=== PATIENT | female | born 1950 | race Caucasian/White ===

== ENCOUNTER 2020-07-18 14:20 | Inpatient (IN) | payer MEDICARE, OTHER ==
[~2020-07-18] VITALS: Ht 167.6 cm; Wt 69.9 kg
--- NOTE | 2020-07-18 14:34 | NUR ---
[facility]IB [facility] FROM [facility], WORSENING CHRONIC ABDOMINAL PAIN (2 1/2 YRS). PAIN LEVEL 5/10. ATTACHED TO THE MONITOR. WILL CONTINUE TO MONITOR THE PATIENT.
[2020-07-18 14:51] LABS: BASOPHILS % (AUTO) 0.4 % (0.0-2.0); EOSINOPHILS % (AUTO) 2.7 % (0.0-6.0); HEMATOCRIT 37 % (33-45); HEMOGLOBIN 12.5 g/dL (11.5-14.8); LYMPHOCYTES # (AUTO) 1.7 /CMM (0.8-4.8); LYMPHOCYTES % (AUTO) 22.9 % (20.0-44.0); MEAN CORPUSCULAR HGB CONC 34 g/dl (31.0-36.0); MEAN CORPUSCULAR VOLUME 88 fL (82-100); MONOCYTES # (AUTO) 0.7 /CMM (0.1-1.30); MONOCYTES % (AUTO) 9.5 % (2.0-12.0); NEUTROPHILS # (AUTO) 4.7 /CMM (1.8-8.9); NEUTROPHILS % (AUTO) 64.5 % (43.0-81.0); PLATELET COUNT (AUTO) 121 /CMM (150-450); RED BLOOD CELL COUNT(AUTO) 4.27 MIL/uL (4.0-5.2); WHITE BLOOD COUNT (AUTO) 7.2 K/uL (4.3-11.0)
[2020-07-18 14:55] LABS: CALCIUM, SERUM 8.9 mg/dL (8.5-10.1); CREATININE 1.3 mg/dL (0.6-1.3); POTASSIUM 4.8 mmol/L (3.5-5.1)
[2020-07-18] MEDS ORDERED: IOHEXOL-300 100 ML VIAL IV ONE (15:13)
[2020-07-18] MEDS ORDERED: IV NS 0.9% 250 ML IV ONE (15:13)
[2020-07-18 15:41] LABS: ALBUMIN 3.4 g/dL (3.4-5.0)
[2020-07-18 15:42] LABS: BILIRUBIN,DIRECT 0.1 mg/dL (0.0-0.2); BILIRUBIN,TOTAL 0.2 mg/dL (0.2-1.0)
[2020-07-18 15:43] LABS: TOTAL PROTEIN, SERUM 7.5 g/dL (6.4-8.2)
--- NOTE | 2020-07-18 16:08 | NUR ---
DR. METCALF CALLED [phone] GILDARDO HAGEN PROCEDURAL NURSE TO CALL US BACK.
[2020-07-18] MEDS ORDERED: BISA10SU11 RC (17:07)
[2020-07-18] MEDS ORDERED: SODI45SP6 NS (17:07)
[2020-07-18] MEDS ORDERED: BACL10TA PO (17:07)
[2020-07-18] MEDS ORDERED: SERT100T PO (17:07)
[2020-07-18] MEDS ORDERED: NAPR-1009 PO (17:07)
[2020-07-18] MEDS ORDERED: OMEG1CAP55 PO (17:07)
[2020-07-18] MEDS ORDERED: ASPI-1169 PO (17:07)
[2020-07-18] MEDS ORDERED: SENN-175 PO (17:07)
[2020-07-18] MEDS ORDERED: DORZ10DR13 EACHEYE (17:07)
[2020-07-18] MEDS ORDERED: CLOP75TA15 PO (17:07)
[2020-07-18] MEDS ORDERED: ASCO500C17 PO (17:07)
[2020-07-18] MEDS ORDERED: GABA-532 PO (17:07)
[2020-07-18] MEDS ORDERED: SIMV-49 PO (17:07)
[2020-07-18] MEDS ORDERED: MELA3TAB41 PO (17:07)
[2020-07-18] MEDS ORDERED: NA P133E RC (17:07)
[2020-07-18] MEDS ORDERED: MAGN400O6 PO (17:07)
[2020-07-18] MEDS ORDERED: CARB1TAB21 PO (17:07)
[2020-07-18] MEDS ORDERED: ACET325T53 PO (17:07)
[2020-07-18] MEDS ORDERED: FAMO20TA8 PO (17:07)
[2020-07-18] MEDS ORDERED: MULT-439 PO (17:07)
[2020-07-18] MEDS ORDERED: DOCU-141 PO (17:07)
[2020-07-18] MEDS ORDERED: POLY17PO4 PO (17:07)
[2020-07-18] MEDS ORDERED: NEPA3DRO OP (17:07)
[2020-07-18] MEDS ORDERED: CLON1TAB PO (17:07)
--- NOTE | 2020-07-18 17:34 | NUR ---
covid swab done and sent to the lab
--- NOTE | 2020-07-18 17:39 | NUR ---
BED 105
--- NOTE | 2020-07-18 17:45 | NUR ---
[facility] CALLED COTTAGE SUPERVISOR PAGED.
--- NOTE | 2020-07-18 18:02 | NUR ---
REPORT GIVEN TO NURSE JOE.
--- NOTE | 2020-07-18 19:39 | NUR ---
DR. CUELLO SPEAKING WITH VIANEY DELGADILLO NP REGARDING ADMISSION
--- NOTE | 2020-07-18 20:30 | NUR ---
RN NOTE PT ARRIVED TO THE UNIT VIA GURJESSICA PT IS A/A/O X3, ON RA SATING 95%,HAS UNLABORED BREATHING, SAFETY MEASURES IN PLACE.
[2020-07-18 21:00] VITALS: BP 120/67
[2020-07-18] MEDS ORDERED: MORPHINE SULFATE INJ 2 MG/ML DISP.SYRIN IV PRN (22:00)
[2020-07-18] MEDS ORDERED: ACETAMINOPHEN 325 MG TABLET PO PRN (22:00)
[2020-07-18] MEDS ORDERED: CIPROFLOXACIN IV RTU 400 MG in PREMIX 1 EA IV SCH (22:00)
[2020-07-18] MEDS ORDERED: MAG HYDROX/AL HYDROX/SIMETH 30 ML UDC PO PRN (22:00)
[2020-07-18] MEDS ORDERED: ONDANSETRON HCL/PF 4 MG/2 ML VIAL IVP PRN (22:00)
[2020-07-18] MEDS ORDERED: HYDROCODONE/APAP 5/325MG TABLET PO PRN (22:00)
[2020-07-18] MEDS ORDERED: MAGNESIUM HYDROXIDE 30 ML UDC PO PRN (22:00)
[2020-07-18] MEDS ORDERED: METRONIDAZOLE 500MG/ NS 100ML 100 ML IV ONE (22:19)
[2020-07-18] MEDS ORDERED: CEFTRIAXONE 1 G VIAL ONE (22:20)
[2020-07-18] MEDS: IV NS 0.9% 1,000 ML IV PRN (22:24)
[2020-07-18] MEDS: CEFTRIAXONE 1 G in IV D5W 50 ML IV SCH (22:25)
[2020-07-18] MEDS: METRONIDAZOLE 500MG/ NS 100ML 500 MG in PREMIX 1 EA IV SCH (22:57)
[2020-07-19 04:00] VITALS: BP 120/61
[2020-07-19] MEDS ORDERED: METRONIDAZOLE 500MG/ NS 100ML 100 ML IV ONE (06:01)
[2020-07-19 06:02] LABS: BASOPHILS % (AUTO) 0.3 % (0.0-2.0); EOSINOPHILS % (AUTO) 2.8 % (0.0-6.0); HEMATOCRIT 37 % (33-45); HEMOGLOBIN 12.5 g/dL (11.5-14.8); LYMPHOCYTES # (AUTO) 1.7 /CMM (0.8-4.8); LYMPHOCYTES % (AUTO) 33.4 % (20.0-44.0); MEAN CORPUSCULAR HGB CONC 34 g/dl (31.0-36.0); MEAN CORPUSCULAR VOLUME 88 fL (82-100); MONOCYTES # (AUTO) 0.5 /CMM (0.1-1.30); MONOCYTES % (AUTO) 9.7 % (2.0-12.0); NEUTROPHILS # (AUTO) 2.8 /CMM (1.8-8.9); NEUTROPHILS % (AUTO) 53.8 % (43.0-81.0); PLATELET COUNT (AUTO) 96 /CMM (150-450); RED BLOOD CELL COUNT(AUTO) 4.26 MIL/uL (4.0-5.2); WHITE BLOOD COUNT (AUTO) 5.2 K/uL (4.3-11.0)
[2020-07-19] MEDS: METRONIDAZOLE 500MG/ NS 100ML 500 MG in PREMIX 1 EA IV SCH ×3 (06:03→22:30)
[2020-07-19 06:06] LABS: CALCIUM, SERUM 8.6 mg/dL (8.5-10.1); CREATININE 1.2 mg/dL (0.6-1.3); MAGNESIUM 2.1 mg/dL (1.8-2.4); PHOSPHORUS 3.2 mg/dL (2.5-4.9); POTASSIUM 4.1 mmol/L (3.5-5.1)
--- NOTE | 2020-07-19 07:13 | NUR ---
RN NOTE REPORT GIVEN TO ONCOMING SHIFT FOR PAM.
--- NOTE | 2020-07-19 07:50 | NUR ---
MS RN OPENING NOTE PATIENT IS IN BED RESTING, PATIENT IS IN NO ACUTE DISTRESS. PATIENT WAS ON ROOM AIR, STATED SHE HAS DIFFICULTY BREATHING, PLACED PATIENT ON 2L OXYGEN VIA NASAL CANULA. PATIENT IS ON BED REST. SAFETY PRECAUTIONS ARE ON. BED IS LOCKED IN THE LOWEST POSITION WITH SIDE RAILS UP, CALL LIGHT WITHIN REACH, WILL CONTINUE TO MONITOR CLOSELY THROUGHOUT THE SHIFT.
[2020-07-19] MEDS ORDERED: Medication Not On Formulary EA (Nepafenac (Nevanac) 1 DROP) OP SCH (09:00)
[2020-07-19] MEDS: KETOROLAC EYE 0.5% 3 ML BOTTLE OP SCH (09:04)
[2020-07-19] MEDS: TIMOLOL MAL/DORZOLAM HCL OPHTH 10 ML BOTTLE EACHEYE SCH ×2 (09:04→16:32)
[2020-07-19] MEDS: clonazePAM 1 MG TABLET PO SCH ×2 (09:04→16:33)
[2020-07-19] MEDS: PANTOPRAZOLE 40 MG TABLET.DR PO SCH (09:05)
[2020-07-19] MEDS: BACLOFEN (10 MG) 10 MG TABLET PO SCH ×3 (09:05→16:33)
[2020-07-19] MEDS: DOCUSATE SODIUM 100 MG CAPSULE PO SCH ×2 (09:05→16:33)
[2020-07-19] MEDS: CARBIDOPA/LEVODOPA 25/100 MG 1 UDTAB PO SCH ×3 (09:05→16:33)
[2020-07-19] MEDS: MULTIVIT W/MINERALS 1 TAB TABLET PO SCH (09:05)
[2020-07-19] MEDS: ASPIRIN 81 MG TAB.CHEW PO SCH (09:05)
[2020-07-19] MEDS: ASCORBIC ACID 500 MG TABLET PO SCH (09:05)
[2020-07-19] MEDS: SERTRALINE HCL 50 MG TABLET PO SCH (09:05)
[2020-07-19] MEDS: GABAPENTIN 100 MG CAPSULE PO SCH ×2 (09:06→16:33)
[2020-07-19] MEDS: CLOPIDOGREL BISULFATE 75 MG TABLET PO SCH (09:06)
[2020-07-19 09:17] LABS: EOSINOPHILS % (MANUAL) 5 % (0-4); LYMPHOCYTES % (MANUAL) 30 % (16-48); MONOCYTES % (MANUAL) 7 % (0-11.0); NEUTROPHILS % (MANUAL) 58 (42-76)
--- NOTE | 2020-07-19 09:24 | NUR ---
MS RN NOTE PATIENT IS UNABLE TO TAKE ORAL MEDICATIONS DUE TO ASPIRATION PRECAUTIONS, PATIENT IS UNCOMFORTABLE WITH SWALLOWING, TRIED TO GIVE CRUSHED MEDICATIONS WITH APPLE JUICE DUE TO CLEAR LIQUID DIET, PATIENT ONLY TOOK HALF OF THE MEDICATIONS. WILL ORDER SWALLOW EVALUATION.
[2020-07-19] MEDS: IV NS 0.9% 1,000 ML IV PRN (16:32)
--- NOTE | 2020-07-19 18:41 | NUR ---
MS RN CLOSING NOTE PATIENT IS IN BED RESTING, PATIENT IS IN NO ACUTE DISTRESS. PATIENT WAS ON ROOM AIR, STATED SHE HAS DIFFICULTY BREATHING, PLACED PATIENT ON 2L OXYGEN VIA NASAL CANULA. PATIENT IS ON BED REST. SAFETY PRECAUTIONS ARE ON. BED IS LOCKED IN THE LOWEST POSITION WITH SIDE RAILS UP, CALL LIGHT WITHIN REACH. ENDORSE PATIENT TO PLATER PRINTED CIRCUIT BOARD PANELS NURSE FOR PAM.
--- NOTE | 2020-07-19 19:30 | NUR ---
RN NOTES RECEIVED PT IN BED, ON O2 VIA NC AT 2L. DENIES ANY SOB. NO RESP DISTRESS NOTED. IV ON LAC PATENT AND INTACT, IVF NS RUNNING AT 75ML/HR. PT DENIES ANY PAIN AT THIS TIME. WILL CONTINUE TO MONITOR. ALL SAFETY MEASURES IMPLEMENTED PER PROTOCOL. CALL LIGHT WITHIN REACH BED LOCKED IN LOWEST POSITION, SIDE RAILS UP X 2.
[2020-07-19 20:00] VITALS: BP 105/53
--- NOTE | 2020-07-19 20:57 | NUR ---
RN NOTES SPOKE TO LAURA SALAZAR FOR DR. LYONS. RELAYED CT RESULTS. PER CONTENT DESIGNER PT NEEDS GI CONSULT. PT NOT FOR EMERGENT SURGERY. CHARGE NURSE MADE AWARE. WILL ENDORSE.
[2020-07-19] MEDS: SIMVASTATIN 20 MG TABLET PO SCH (21:30)
[2020-07-19] MEDS: CEFTRIAXONE 1 G in IV D5W 50 ML IV SCH (21:30)
[2020-07-19] MEDS ORDERED: SIMVASTATIN 40 MG TABLET PO SCH (22:00)
[2020-07-19] MEDS ORDERED: Medication Not On Formulary EA (Omega-3 Acid Ethyl Esters (Lovaza) 2 CAP) PO SCH (22:00)
[2020-07-19] MEDS ORDERED: Medication Not On Formulary EA (Melatonin 3 MG) PO SCH (22:00)
--- NOTE | 2020-07-19 22:00 | NUR ---
RN NOTES NEEDS URINE SAMPLE. PT INCONTINENT. PT REFUSED STRAIGHT CATH. EXPLAINED RISKS AND BENEFITS. VERBALIZES UNDERSTANDING.
[2020-07-20 04:00] VITALS: BP 116/63
[2020-07-20] MEDS: METRONIDAZOLE 500MG/ NS 100ML 500 MG in PREMIX 1 EA IV SCH ×3 (05:37→22:14)
--- NOTE | 2020-07-20 05:47 | NUR ---
RN NOTES COLLECTED URINE SAMPLE, SENT TO LABS.
[2020-07-20 06:19] LABS: URINE TOTAL PROTEIN 11.7 mg/dL (0-11.9)
--- NOTE | 2020-07-20 06:28 | NUR ---
RN CLOSING NOTES PT ABLE TO MAKE NEEDS KNOWN. NO SIGNIFICANT CHANGES NOTED. NO PAIN ALL SHIFT. REMAIN AFEBRILE. ALL DUE ATBS GIVEN. CONTINUE ON IVF OF NS, NO SIGNS OF INFILTRATION NOTED. ALL NEEDS ATTENDED. KEPT CLEAN AND DRY. WILL ENDORSE TO NEXT SHIFT NURSE FOR PAM.
--- NOTE | 2020-07-20 07:30 | NUR ---
RN OPENING NOTE PT HIGH FOWERS', ASPIRATION PRECAUTION, A/Ox2-3 WITH PERIODS OF CONFUSION, BREATHING RA SPO2 95% NO SIGN OR RESP DISTRESS OR SOB. PT HAS LAC #20 RUNNING NS @ 75ML/HR, FLUUSHED, PATENT AND INTACT WITH NO S/S OF INFECTION OR INFILTRATION. ALL PT SAFETY PRECAUTIONS IN PLACE, WILL CONT TO MONITOR
[2020-07-20 08:00] VITALS: BP 131/66
[2020-07-20] MEDS: CLOPIDOGREL BISULFATE 75 MG TABLET PO SCH (08:54)
[2020-07-20] MEDS: BACLOFEN (10 MG) 10 MG TABLET PO SCH ×3 (08:55→17:10)
[2020-07-20] MEDS: DOCUSATE SODIUM 100 MG CAPSULE PO SCH ×2 (08:55→17:10)
[2020-07-20] MEDS: CARBIDOPA/LEVODOPA 25/100 MG 1 UDTAB PO SCH ×3 (08:55→17:09)
[2020-07-20] MEDS: ASCORBIC ACID 500 MG TABLET PO SCH (08:56)
[2020-07-20] MEDS: GABAPENTIN 100 MG CAPSULE PO SCH ×2 (08:56→17:09)
[2020-07-20] MEDS: ASPIRIN 81 MG TAB.CHEW PO SCH (08:56)
[2020-07-20] MEDS: clonazePAM 1 MG TABLET PO SCH ×2 (08:56→17:09)
[2020-07-20] MEDS: SERTRALINE HCL 50 MG TABLET PO SCH (08:56)
[2020-07-20] MEDS: MULTIVIT W/MINERALS 1 TAB TABLET PO SCH (08:56)
[2020-07-20] MEDS: PANTOPRAZOLE 40 MG TABLET.DR PO SCH (08:56)
[2020-07-20] MEDS: TIMOLOL MAL/DORZOLAM HCL OPHTH 10 ML BOTTLE EACHEYE SCH ×2 (09:00→17:10)
[2020-07-20] MEDS: KETOROLAC EYE 0.5% 3 ML BOTTLE OP SCH (09:00)
--- NOTE | 2020-07-20 11:11 | NUR ---
RN NOTE BARREL LAPPER WAYLON STATES OK TO PROGRESS PT'S DIET TO PUREED RECOMMENDED BY SPEECH THERAPIST DENISSE
[2020-07-20] MEDS: IV NS 0.9% 1,000 ML IV PRN (13:12)
[2020-07-20 16:00] VITALS: BP 141/71
--- NOTE | 2020-07-20 17:20 | NUR ---
07/20: 1718 Called and spoke to Dr. Marcial due notes pending from LAURA Barahona and discussed re: dcp. Per Dr. Marcial, "you can take my verbal order that patient is clear to go back to SNF and no surgical intervention." Hospitalist made aware. Addendum: 07/20/20 at 1720 by JOSE FOWLER RN Amended: Links added.
--- NOTE | 2020-07-20 19:07 | NUR ---
RN CLOSING NOTE NO CHANGES TO PT DURING SHIFT, PT IN STABLE CONDITION. PT HIGH ROBERTSON'S ASPIRATION PRECAUTIONS. TOLERATED CRUSHED PO MEDS AND PUREED DIET WELL. ALL PT SAFETY PRECAUTIONS IN PLACE, PAM ENDORSED TO TECHNICAL SERVICES COORDINATOR RN
--- NOTE | 2020-07-20 19:30 | NUR ---
RN NOTES RECEIVED PT IN BED, ON O2 VIA NC AT 2L. DENIES ANY SOB. NO RESP DISTRESS NOTED. IV ON LAC PATENT AND INTACT, ON IVF NS RUNNING AT 75ML/HR. PT DENIES ANY PAIN AT THIS TIME. PT ON PUREED DIET AND THICKENED LIQUID. WILL CONTINUE TO MONITOR. ALL SAFETY MEASURES IMPLEMENTED PER PROTOCOL. CALL LIGHT WITHIN REACH BED LOCKED IN LOWEST POSITION, SIDE RAILS UP X 2.
[2020-07-20 20:00] VITALS: BP 135/69
[2020-07-20] MEDS: SIMVASTATIN 20 MG TABLET PO SCH (21:05)
[2020-07-20] MEDS: CEFTRIAXONE 1 G in IV D5W 50 ML IV SCH (21:05)
[2020-07-20 21:50] VITALS: BP 133/69
--- NOTE | 2020-07-20 21:50 | NUR ---
MSRLexie RECEIVED FROM LILLIAN VIA BED, VERY PLEASANT 70 Y/O FEMALE.PRESENT IVF INFUSING WELL. 02 AT 2 L VIA NC. NO SOB. ORIENTED TO ROOM FACILITIES, CALL LIGHT WITHIN REACH..DUE MEDS ADMINISTERED.
--- NOTE | 2020-07-20 22:02 | NUR ---
RN NOTES PT TRANSFERRED TO ROOM 326-2. NO DISTRESS NOTED. REPORT GIVEN TO NANCY FOR PAM.
[2020-07-21] MEDS: METRONIDAZOLE 500MG/ NS 100ML 500 MG in PREMIX 1 EA IV SCH (06:04)
[2020-07-21] MEDS: IV NS 0.9% 1,000 ML IV PRN (06:08)
--- NOTE | 2020-07-21 06:15 | NUR ---
MSRN SLEPT ALL NIGHT. VOIDED ONCE ONLY. NO OTHER NEEDS MADE. KEPT DRY CLEAN AND COMFORTABLE. PRESENT IVF INFUSING WELL.
--- NOTE | 2020-07-21 07:53 | NUR ---
MS/RN OPENING NOTES RECEIVED PATIENT IN BED, ALERT AND ORIENTED X3. ABLE TO MAKE NEEDS KNOWN. CURRENTLY ON 2LPM OF OXYGEN VIA NASAL CANNULA. NO DISCOMFORTS NOTED. SKIN IS INTACT. IV SITE ON LEFT AC IS PATENT AND INTACT WITH NS @75 ML/HR. SAFETY PRECAUTIONS IN PLACED. BED ON LOWEST POSITION. SIDE RAILS UP X4, CALL LIGHT WITHIN REACH. WILL CONTINUE TO MONITOR.
[2020-07-21 08:00] VITALS: BP 146/74
[2020-07-21] MEDS: ASCORBIC ACID 500 MG TABLET PO SCH (08:38)
[2020-07-21] MEDS: ASPIRIN 81 MG TAB.CHEW PO SCH (08:38)
[2020-07-21] MEDS: CLOPIDOGREL BISULFATE 75 MG TABLET PO SCH (08:38)
[2020-07-21] MEDS: clonazePAM 1 MG TABLET PO SCH (08:38)
[2020-07-21] MEDS: GABAPENTIN 100 MG CAPSULE PO SCH (08:39)
[2020-07-21] MEDS: CARBIDOPA/LEVODOPA 25/100 MG 1 UDTAB PO SCH (08:39)
[2020-07-21] MEDS: BACLOFEN (10 MG) 10 MG TABLET PO SCH (08:40)
[2020-07-21] MEDS: DOCUSATE SODIUM 100 MG CAPSULE PO SCH (08:40)
[2020-07-21] MEDS: PANTOPRAZOLE 40 MG TABLET.DR PO SCH (08:59)
[2020-07-21] MEDS: SERTRALINE HCL 50 MG TABLET PO SCH (09:18)
[2020-07-21] MEDS: MULTIVIT W/MINERALS 1 TAB TABLET PO SCH (09:19)
[2020-07-21] MEDS: TIMOLOL MAL/DORZOLAM HCL OPHTH 10 ML BOTTLE EACHEYE SCH (09:22)
[2020-07-21] MEDS: KETOROLAC EYE 0.5% 3 ML BOTTLE OP SCH (09:23)
--- NOTE | 2020-07-21 13:15 | NUR ---
PATIENT MEDICALLY STABLE. MD ORDERED DISCHARGED FOR THE PATIENT. PATIENT IS ALERT AND ORIENTED X3. ABLE TO MAKE NEEDS KNOWN. ON ROOM AIR WITH O2 SAT OF 94%. NO SOB NOTED. NO DISTRESSED REPORTED. V/S TAKEN AND RECORDED FOLLOWS: BP150/82, HR 60, RR-18, T-97. PICKED UP BY A NON-EMERGENCY TRANSPORT AND PATIENT GOING BACK TO [facility]. CALLED SNF AHEAD OF TIME AND WAS ABLE TO GIVE ENDORSEMENT REPORT TO LEONOR SANDY CHARGE NURSE AT THE FACILITY. DISCHARGED INSTRUCTIONS GIVEN TO THE PATIENT AND VERBALIZED UNDERSTANDING. ALL BELONGINGS ACCOUNTED FOR.
[2020-07-21] MEDS ORDERED: MUPIROCIN OINT 2% 22 GM TUBE NS SCH (21:00)
== END 2020-07-21 14:46 | DRG 391 ==
LOC: ER 14:38 → MEDSG1 17:43 → MED 07-20 21:44
PROVIDERS: ADMIT Family Medicine; ATTEND Family Medicine
DX: K57.32 Diverticulitis of large intestine without perforation or abscess without bleeding (principal); N17.0 Acute kidney failure with tubular necrosis; I71.4 Abdominal aortic aneurysm, without rupture; I48.91 Unspecified atrial fibrillation; I25.10 Atherosclerotic heart disease of native coronary artery without angina pectoris; G20 Parkinson's disease; F41.9 Anxiety disorder, unspecified; E78.5 Hyperlipidemia, unspecified; F32.9 Major depressive disorder, single episode, unspecified; K21.9 Gastro-esophageal reflux disease without esophagitis; Z88.1 Allergy status to other antibiotic agents; Z88.5 Allergy status to narcotic agent; Z79.82 Long term (current) use of aspirin; Z79.02 Long term (current) use of antithrombotics/antiplatelets; Z79.899 Other long term (current) drug therapy; I12.9 Hypertensive chronic kidney disease with stage 1 through stage 4 chronic kidney disease, or unspecified chronic kidney disease; N18.9 Chronic kidney disease, unspecified; Z20.822 Contact with and (suspected) exposure to COVID-19; Z95.5 Presence of coronary angioplasty implant and graft; K59.00 Constipation, unspecified; H40.9 Unspecified glaucoma; D25.9 Leiomyoma of uterus, unspecified; G89.29 Other chronic pain; K76.0 Fatty (change of) liver, not elsewhere classified; K76.89 Other specified diseases of liver; Z82.49 Family history of ischemic heart disease and other diseases of the circulatory system
CPT/HCPCS: 36415; 76705-TC; 80048-TC; 80061-TC; 80076-TC; 82570-TC; 83690-TC; 83735-TC; 84100-TC; 84155-TC; 84300-TC; 85025-TC; 87081-TC; 92526; 92611-TC; 97112-TC; 97530-TC; A4216; G0378; J0696; J7030; J7050; J7060; Q9967; U0003

== ENCOUNTER 2020-11-08 11:51 | Emergency (ER) | payer MEDICARE, OTHER ==
[~2020-11-08] VITALS: Ht 165.1 cm; Wt 68.9 kg
[~2020-11-08 11:51] MED LIST: ACET325T53 PO; ASCO500C17 PO; ASPI-1169 PO; BACL10TA PO; BISA10SU11 RC; CARB1TAB21 PO; CLON1TAB PO; CLOP75TA15 PO; DOCU-141 PO; DORZ10DR13 EACHEYE; FAMO20TA8 PO; GABA-532 PO; MAGN400O6 PO; MELA3TAB41 PO; MULT-439 PO; NA P133E RC; NAPR-1009 PO; NEPA3DRO OP; OMEG1CAP55 PO; POLY17PO4 PO; SENN-175 PO; SERT100T PO; SIMV-49 PO; SODI45SP6 NS
--- NOTE | 2020-11-08 12:02 | NUR ---
PATIENT BIBRA FROM SNF, FOR LAC ON R EYEBROW AND R HAND, HEMATOMA ON NOSE S/P FALL OUT OF CHAIR. PATIENT IS ALERT AND ORIENTED X3. NO RESPIRATORY DISTRESS NOTED. RESPIRATIONS EVEN AND UNLABORED. PATIENT ABLE TO MAKE NEEDS KNOWN VERBALLY. WILL CONTINUE TO MONITOR.
--- NOTE | 2020-11-08 12:10 | NUR ---
LAB AT BEDSIDE
[2020-11-08 12:16] LABS: BASOPHILS # (AUTO) 0.1 K/uL (0.0-0.2); BASOPHILS % (AUTO) 0.8 % (0.0-2.0); EOSINOPHILS % (AUTO) 2.7 % (0.0-6.0); HEMATOCRIT 39 % (33-45); HEMOGLOBIN 12.9 g/dL (11.5-14.8); LYMPHOCYTES # (AUTO) 1.6 K/uL (0.8-4.8); LYMPHOCYTES % (AUTO) 24.2 % (20.0-44.0); MEAN CORPUSCULAR HGB CONC 33 g/dl (31.0-36.0); MEAN CORPUSCULAR VOLUME 86 fL (82-100); MONOCYTES # (AUTO) 0.6 K/uL (0.1-1.30); MONOCYTES % (AUTO) 8.6 % (2.0-12.0); NEUTROPHILS # (AUTO) 4.1 K/uL (1.8-8.9); NEUTROPHILS % (AUTO) 63.7 % (43.0-81.0); PLATELET COUNT (AUTO) 148 K/uL (150-450); RED BLOOD CELL COUNT(AUTO) 4.54 MIL/uL (4.0-5.2); WHITE BLOOD COUNT (AUTO) 6.4 K/uL (4.3-11.0)
[2020-11-08 12:23] LABS: CALCIUM, SERUM 9.4 mg/dL (8.5-10.1); CREATININE 1.2 mg/dL (0.6-1.3); POTASSIUM 4.2 mmol/L (3.5-5.1)
[2020-11-08] MEDS ORDERED: CHOL100043 PO (12:56)
[2020-11-08] MEDS ORDERED: ATOR40TA PO (12:56)
--- NOTE | 2020-11-08 13:52 | NUR ---
CALLED [facility] ETA [phone]
[2020-11-08 14:54] VITALS: BP 120/70
--- NOTE | 2020-11-08 14:54 | NUR ---
Patient discharged to home in stable condition. Written and verbal after care instructions given. Patient verbalizes understanding of instruction.
== END 2020-11-08 14:56 | disposition home or self-care (01) ==
LOC: ER 11:59
DX: S01.111A Laceration without foreign body of right eyelid and periocular area, initial encounter (principal); R55 Syncope and collapse; G20 Parkinson's disease; F02.80 Dementia in other diseases classified elsewhere, unspecified severity, without behavioral disturbance, psychotic disturbance, mood disturbance, and anxiety; I10 Essential (primary) hypertension; I48.91 Unspecified atrial fibrillation; K21.9 Gastro-esophageal reflux disease without esophagitis; F41.9 Anxiety disorder, unspecified; F32.9 Major depressive disorder, single episode, unspecified; E78.5 Hyperlipidemia, unspecified; R53.1 Weakness; Z88.5 Allergy status to narcotic agent; Z88.1 Allergy status to other antibiotic agents; Z79.899 Other long term (current) drug therapy; W05.0XXA Fall from non-moving wheelchair, initial encounter; Y93.89 Activity, other specified; Y92.89 Other specified places as the place of occurrence of the external cause; Y99.8 Other external cause status
CPT/HCPCS: 12013; 36415; 70450; 80048; 85025; 85730; 99284; A6403

== ENCOUNTER 2021-07-18 18:50 | Inpatient (IN) | payer MEDICARE, OTHER ==
[~2021-07-18] VITALS: Ht 170.2 cm; Wt 73.5 kg
[~2021-07-18 18:50] MED LIST changes: -ASCO500C17 PO; +ATOR40TA PO; +CHOL100043 PO; -SIMV-49 PO
--- NOTE | 2021-07-18 19:05 | NUR ---
BIB [facility] from [facility] [place] " Fever/general weakness/more altered than normal". Pt A/Ox1. Tolerating O2 4lpm N/C satting @ 97%. Connected pt to Pox and monitor. Safety measures in place.
[2021-07-18] MEDS ORDERED: VANCOMYCIN 1 GM VIAL ONE (19:17)
--- NOTE | 2021-07-18 19:20 | NUR ---
LAC #20G S/L; BLOOD COLLECTED AND SENT TO LAB
--- NOTE | 2021-07-18 19:23 | NUR ---
STOPPER MAKER HELPER AT PT'S BEDSIDE
[2021-07-18] MEDS ORDERED: CEFEPIME 1 GM in IV D5W 50 ML IV ONE (19:30)
[2021-07-18] MEDS ORDERED: VANCOMYCIN 1 GM in IV D5W 250 ML IV ONE (19:30)
--- NOTE | 2021-07-18 19:42 | NUR ---
URINE COLLECTED AND SENT TO LAB
[2021-07-18 20:09] LABS: BASOPHILS % (AUTO) 0.1 % (0.0-2.0); EOSINOPHILS % (AUTO) 0.3 % (0.0-6.0); HEMATOCRIT 32 % (33-45); HEMOGLOBIN 10.9 g/dL (11.5-14.8); LYMPHOCYTES # (AUTO) 0.9 K/uL (0.8-4.8); LYMPHOCYTES % (AUTO) 10.3 % (20.0-44.0); MEAN CORPUSCULAR HGB CONC 34 g/dl (31.0-36.0); MEAN CORPUSCULAR VOLUME 85 fL (82-100); MONOCYTES # (AUTO) 0.7 K/uL (0.1-1.30); MONOCYTES % (AUTO) 7.5 % (2.0-12.0); NEUTROPHILS # (AUTO) 7.3 K/uL (1.8-8.9); NEUTROPHILS % (AUTO) 81.8 % (43.0-81.0); PLATELET COUNT (AUTO) 224 K/uL (150-450); RED BLOOD CELL COUNT(AUTO) 3.78 MIL/uL (4.0-5.2); WHITE BLOOD COUNT (AUTO) 8.9 K/uL (4.3-11.0)
[2021-07-18 20:13] LABS: ALANINE AMINOTRANSFERASE 54 U/L (12-78); ALBUMIN 2.5 g/dL (3.4-5.0); ALKALINE PHOSPHATASE 222 U/L (46-116); ASPARTATE AMINOTRANSFERASE 113 U/L (15-37); BILIRUBIN,DIRECT 0.2 mg/dL (0.0-0.2); BILIRUBIN,TOTAL 0.4 mg/dL (0.2-1.0); CALCIUM, SERUM 9.1 mg/dL (8.5-10.1); CARBON DIOXIDE 24 mmol/L (21-32); CHLORIDE 99 mmol/L (98-107); CREATININE 1.4 mg/dL (0.6-1.3); GLUCOSE 123 mg/dL (74-106); POTASSIUM 4.3 mmol/L (3.5-5.1); SODIUM SERUM 134 mmol/L (136-145); TOTAL PROTEIN, SERUM 8.1 g/dL (6.4-8.2); UREA NITROGEN, BLOOD 19 mg/dL (7-18)
[2021-07-18 20:40] LABS: BILIRUBIN,URINE NEGATIVE (NEGATIVE); COLOR,URINE YELLOW (YELLOW); LEUKOCYTE ESTERASE ,URINE NEGATIVE (NEGATIVE); NITRITE, URINE NEGATIVE (NEGATIVE); PROTEIN,URINE 100 mg/dl (NEGATIVE); UGLUCOSE NEGATIVE (NEGATIVE)
--- NOTE | 2021-07-18 20:50 | NUR ---
COVID ANTIGEN SWAB COLLECTED AND SENT TO LAB
[2021-07-18 20:53] LABS: BACTERIA,URINE 1+ /HPF (None Seen); MUCUS,URINE Few /LPF (None Seen); RBC,URINE 0-2 /HPF (0-2); WBC,URINE 0-2 /HPF (0-3)
[2021-07-18] MEDS ORDERED: ACETAMINOPHEN ES 500 MG TABLET PO ONE (21:30)
[2021-07-18] MEDS ORDERED: ACETAMINOPHEN ES 500 MG TABLET ONE (22:23)
--- NOTE | 2021-07-18 22:41 | NUR ---
[address] [place] [address]
--- NOTE | 2021-07-18 22:47 | NUR ---
report given to dionne cobian
--- NOTE | 2021-07-18 23:25 | NUR ---
RN NOTES RECEIVED PATIENT FROM ER WITH DX. OF GEN. WEAKNESS, ALOC, FEVER, A/OXE, SR ON TELE MONITOR HR71, SKIN ASSESSMENT INITIATED, BED IN LOCKED POSITION, ADMISSION PROTOCOL INITIATED, SIDERAILSUPX2, WILL CONTINUE TO MONITOR
[2021-07-19] VITALS: BP 127/74
[2021-07-19] MEDS ORDERED: ONDANSETRON HCL/PF 4 MG/2 ML VIAL IVP PRN (01:00)
[2021-07-19] MEDS ORDERED: ACETAMINOPHEN 325 MG TABLET PO PRN (01:00)
[2021-07-19] MEDS: IV NS 0.9% 1,000 ML IV PRN ×2 (01:16→14:02)
[2021-07-19] MEDS: ENOXAPARIN SODIUM 40 MG/0.4 ML DISP.SYRIN SQ SCH ×2 (01:17→20:32)
[2021-07-19 04:00] VITALS: BP 132/69
--- NOTE | 2021-07-19 06:28 | NUR ---
RN NOTES AWAKE, NO PAIN NOTED,NO SOB, MORNING CARE RENDERED, CALL LIGHT WITHIN REACH, SIDERAILSUPX2, BED IN LOCKED POSITION, PT. NEEDS ATTENDED
--- NOTE | 2021-07-19 07:39 | NUR ---
RECEIVED ASLEEP,NO ACUTE DISTRESS,ISOLATION PRECAUTION OBSERVED WILL CONTINUE TO MONITOR.
[2021-07-19] MEDS: CEFEPIME 2 GM in IV D5W 100 ML IV SCH ×2 (08:35→20:31)
[2021-07-19] MEDS ORDERED: CLIN300C12 PO (09:16)
[2021-07-19] MEDS ORDERED: NETA2.5D3 EACHEYE (09:16)
[2021-07-19] MEDS ORDERED: DICL2.5D EACHEYE (09:17)
[2021-07-19] MEDS ORDERED: POLYETHYLENE GLYCOL 3350 17 GM POWD.PACK PO PRN (12:30)
[2021-07-19] MEDS ORDERED: BISACODYL SUPP (10 MG) 10 MG/SUPP.RECT SUPP.RECT RC PRN (12:30)
[2021-07-19] MEDS ORDERED: NAPROXEN 500 MG TABLET PO PRN (12:30)
--- NOTE | 2021-07-19 14:00 | NUR ---
transferred care to glenny oliveira
[2021-07-19] MEDS: CARBIDOPA/LEVODOPA 25/100 MG 1 UDTAB PO SCH ×2 (14:02→16:16)
[2021-07-19] MEDS: BACLOFEN (10 MG) 10 MG TABLET PO SCH ×2 (14:02→16:17)
[2021-07-19] MEDS: GABAPENTIN 100 MG CAPSULE PO SCH (16:16)
[2021-07-19] MEDS: TIMOLOL MAL/DORZOLAM HCL OPHTH 10 ML BOTTLE EACHEYE SCH (16:16)
[2021-07-19] MEDS: clonazePAM 1 MG TABLET PO SCH (16:17)
[2021-07-19] MEDS: VANCOMYCIN 1 GM in IV D5W 250 ML IV SCH (17:16)
--- NOTE | 2021-07-19 19:30 | NUR ---
RN OPENING NOTE RECEIVED PT IN BED AWAKE, NON VERBAL, RESPONSIVE TO STIMULI. ON O2 VIA NC @ 2L, TOLERATING WELL. NO S/SX OF ACUTE DISTRESS NOTED AT THIS TIME. IV ACCESS NOTED AT LAC #18g INFUSING NS @75 CC/HR, TOLERATING WELL. ALL SAFETY PRECAUTIONS IN PLACE. BED LOCKED IN LOWEST POSITION, BED ALARM ON. CALL LIGHT WITHIN REACH. WILL CONTINUE TO MONITOR.
--- NOTE | 2021-07-19 19:44 | NUR ---
RN NOTE PT RESTING IN BED, NOT IN DISTRESS. RESPONSIVE TO STIMULI. ON O2 VIA NC @ 2L. WITH IV ACCES TO LAC G18 WITH IVF NS@75HR, TOLERATING WELL. DUE MEDS GIVEN. AM/PM CARE DONE. WILL CONTINUE TO MONITOR. SAFETY MEASURES FOLLOWED.
[2021-07-19 20:00] VITALS: BP 139/70
[2021-07-19] MEDS: ATORVASTATIN 40 MG TABLET PO SCH (21:45)
[2021-07-19] MEDS: SENNOSIDES 8.6 MG TABLET PO SCH (21:45)
[2021-07-20] VITALS: BP 149/78
[2021-07-20 04:00] VITALS: BP 144/89
[2021-07-20] MEDS: IV NS 0.9% 1,000 ML IV PRN (05:18)
[2021-07-20 06:30] LABS: BASOPHILS % (AUTO) 0.2 % (0.0-2.0); EOSINOPHILS % (AUTO) 0.8 % (0.0-6.0); HEMATOCRIT 31 % (33-45); HEMOGLOBIN 10.3 g/dL (11.5-14.8); LYMPHOCYTES # (AUTO) 0.9 K/uL (0.8-4.8); LYMPHOCYTES % (AUTO) 10.1 % (20.0-44.0); MEAN CORPUSCULAR HGB CONC 33 g/dl (31.0-36.0); MEAN CORPUSCULAR VOLUME 86 fL (82-100); MONOCYTES # (AUTO) 0.6 K/uL (0.1-1.30); MONOCYTES % (AUTO) 7.5 % (2.0-12.0); NEUTROPHILS # (AUTO) 6.9 K/uL (1.8-8.9); NEUTROPHILS % (AUTO) 81.4 % (43.0-81.0); PLATELET COUNT (AUTO) 231 K/uL (150-450); RED BLOOD CELL COUNT(AUTO) 3.59 MIL/uL (4.0-5.2); WHITE BLOOD COUNT (AUTO) 8.5 K/uL (4.3-11.0)
[2021-07-20 06:54] LABS: CREATININE 1.2 mg/dL (0.6-1.3); MAGNESIUM 1.9 mg/dL (1.8-2.4); PHOSPHORUS 3.7 mg/dL (2.5-4.9); POTASSIUM 4.2 mmol/L (3.5-5.1)
--- NOTE | 2021-07-20 06:59 | NUR ---
RN CLOSING NOTE NO SIGNIFICANT CHANGE THROUGHOUT THE SHIFT. PT REMAINED IN BED, ASLEEP MOST OF THE TIME. PT IS NON VERBAL, RESPONSIVE TO STIMULI WITH EYE OPENING. ON O2 VIA NC @ 2L, TOLERATING WELL. NO ACUTE DISTRESS NOTED. NO SOB NOTED. IV ACCESS NOTED AT LAC #18g INFUSING NS @75 CC/HR, TOLERATING WELL. ALL DUE MEDS GIVEN. ALL NEEDS ATTENDED TO. ALL SAFETY PRECAUTIONS IN PLACE. BED LOCKED IN LOWEST POSITION, BED ALARM ON. CALL LIGHT WITHIN REACH. WILL ENDORSE TO AM SHIFT NURSE FOR PAM.
--- NOTE | 2021-07-20 07:30 | NUR ---
SCALP TREATMENT SPECIALIST AM NOTE PT IN BED AWAKE, AO X 1, NON VERBAL, RESPONSIVE TO STIMULI. ON O2 VIA NC @ 2L, TOLERATING WELL. O2 SAT 98%, NO ACUTE DISTRESS, RESPIRATION UNLABORED, SR HR 69 ON MONITOR. NO SIGNS OF PAIN, NO GRIMACINGS. LAC IV ACCESS WITH NS AT 72 ML/HR INFUSING WELL, SITE CLEAR. ON SOFT DIET, CRUSH MEDS. SEE NURSING FLOWSHEET FOR SKIN ISSUES. ALL SAFETY PRECAUTIONS IN PLACE. BED LOCKED IN LOWEST POSITION, BED ALARM ON. CALL LIGHT WITHIN REACH. WILL TURN AND REPOSITIONQ 2 HOURS. WILL CONTINUE TO MONITOR.
[2021-07-20 08:00] VITALS: BP 129/57
[2021-07-20] MEDS: DICLOFENAC 0.1% OPTH DROPS 5 ML BOTTLE EACHEYE SCH (08:49)
[2021-07-20] MEDS: TIMOLOL MAL/DORZOLAM HCL OPHTH 10 ML BOTTLE EACHEYE SCH ×2 (08:50→17:05)
[2021-07-20] MEDS: CEFEPIME 2 GM in IV D5W 100 ML IV SCH ×2 (08:50→20:34)
[2021-07-20] MEDS: clonazePAM 1 MG TABLET PO SCH ×2 (08:50→16:48)
[2021-07-20] MEDS: ASPIRIN 81 MG TAB.CHEW PO SCH (08:51)
[2021-07-20] MEDS: FAMOTIDINE (20 MG) 20 MG TABLET PO SCH (08:51)
[2021-07-20] MEDS: CARBIDOPA/LEVODOPA 25/100 MG 1 UDTAB PO SCH ×3 (08:51→16:51)
[2021-07-20] MEDS: SERTRALINE HCL 25 MG TABLET PO SCH (08:51)
[2021-07-20] MEDS: CLOPIDOGREL BISULFATE 75 MG TABLET PO SCH (08:51)
[2021-07-20] MEDS: GABAPENTIN 100 MG CAPSULE PO SCH ×2 (08:51→16:50)
[2021-07-20] MEDS: BACLOFEN (10 MG) 10 MG TABLET PO SCH ×3 (08:53→16:49)
--- NOTE | 2021-07-20 09:30 | NUR ---
RN NOTES DUE MEDS GIVEN
[2021-07-20 12:00] VITALS: BP 110/55
[2021-07-20 16:06] VITALS: BP 121/63
--- NOTE | 2021-07-20 18:57 | NUR ---
TRANSIT MIXER DRIVER PM NOTE PT IN BED AWAKE, AO X 1, NON VERBAL, RESPONSIVE TO STIMULI. ON O2 VIA NC @ 2L, TOLERATING WELL. O2 SAT 99%, PATIENT REFUSED TO EAT TODAY , JUST HAD ONE DRINK , MEDICATIONS WERE ADMINISTERED ORDERED , PATIENT IS STABLE, REGULAR UNLABORED RESPIRATION, SR HR 70 ON MONITOR. NO SIGNS OF PAIN, NO GRIMACINGS. LAC IV ACCESS WITH NS AT 72 ML/HR INFUSING WELL, SITE CLEAR AND INTACT. ON SOFT DIET, CRUSH MEDS. SEE NURSING FLOWSHEET FOR SKIN ISSUES. ALL SAFETY PRECAUTIONS IN PLACE. BED LOCKED IN LOWEST POSITION, BED ALARM ON. CALL LIGHT WITHIN REACH. THE PATIENT WAS REPOSITIONED EVERY 2 HR .
[2021-07-20] MEDS: VANCOMYCIN 1 GM in IV D5W 250 ML IV SCH (19:12)
--- NOTE | 2021-07-20 19:17 | NUR ---
DINING ROOM BUSSER OPENING NOTE PT IN BED AWAKE, AO X 1, VERBAL. ON O2 VIA NC @ 2L, TOLERATING WELL. O2 SAT 99%, PATIENT IS STABLE, REGULAR UNLABORED RESPIRATION, SR HR 70 ON MONITOR. NO SIGNS OF PAIN, NO REPORT OF PAIN. LAC IV ACCESS WITH NS AT 75 ML/HR INFUSING WELL, SITE CLEAR AND INTACT. ON SOFT DIET, CRUSH MEDS. SEE NURSING FLOWSHEET FOR SKIN ISSUES. ALL SAFETY PRECAUTIONS IN PLACE. BED LOCKED IN LOWEST POSITION, BED ALARM ON. CALL LIGHT WITHIN REACH. WILL CONTINUE TO MONITOR PT. Addendum: 07/20/21 at 1923 by CAIO GUAJARDO RN CORRECTION DINING ROOM BUSSER CLOSING NOTE PT IN BED AWAKE, AO X 1, NONVERBAL. ON O2 VIA NC @ 2L, TOLERATING WELL. O2 SAT 99%, PATIENT IS STABLE, REGULAR UNLABORED RESPIRATION, SR HR 70 ON MONITOR. NO SIGNS OF PAIN, LAC IV ACCESS WITH NS AT 75 ML/HR INFUSING WELL, SITE CLEAR AND INTACT. ON SOFT DIET, CRUSH MEDS. TURNED AND REPOSITIONED Q 2 HOURS. ALL SAFETY PRECAUTIONS IN PLACE. BED LOCKED IN LOWEST POSITION, BED ALARM ON. CALL LIGHT WITHIN REACH. ALL NEEDS MET. NO OTHER SIGNIFICANT CHANGE AT THIS TIME. WILL ENDORSE TO NEXT SHIFT FOR PAM.
[2021-07-20 20:25] VITALS: BP 127/61
[2021-07-20] MEDS: ATORVASTATIN 40 MG TABLET PO SCH (21:16)
[2021-07-20] MEDS: SENNOSIDES 8.6 MG TABLET PO SCH (21:16)
[2021-07-20] MEDS: ENOXAPARIN SODIUM 40 MG/0.4 ML DISP.SYRIN SQ SCH (21:18)
[2021-07-21 00:02] VITALS: BP 108/62
[2021-07-21 04:13] VITALS: BP 115/57
--- NOTE | 2021-07-21 06:30 | NUR ---
MEDICAL DATA ANALYST CLOSING NOTE PT IN BED AWAKE, AO X 1-2 VERBAL. ON O2 VIA NC @ 2L, TOLERATING WELL. O2 SAT 99%, PATIENT IS STABLE, REGULAR UNLABORED RESPIRATION, SR HR 60 ON MONITOR. NO SIGNS OF PAIN, LAC IV ACCESS WITH NS AT 75 ML/HR INFUSING WELL, SITE CLEAR AND INTACT. ON SOFT DIET, CRUSH MEDS. TURNED AND REPOSITIONED Q2 HOURS. ALL DUE MEDS GIVEN AND TOLERATED WELL.ALL SAFETY PRECAUTIONS IN PLACE. BED LOCKED IN LOWEST POSITION, BED ALARM ON. CALL LIGHT WITHIN REACH. ALL NEEDS MET. WILL ENDORSE TO NEXT SHIFT FOR PAM.
[2021-07-21 07:19] LABS: BASOPHILS % (AUTO) 0.4 % (0.0-2.0); EOSINOPHILS % (AUTO) 1.4 % (0.0-6.0); HEMATOCRIT 31 % (33-45); HEMOGLOBIN 10.3 g/dL (11.5-14.8); LYMPHOCYTES % (AUTO) 14.5 % (20.0-44.0); MEAN CORPUSCULAR HGB CONC 34 g/dl (31.0-36.0); MEAN CORPUSCULAR VOLUME 87 fL (82-100); MONOCYTES # (AUTO) 0.6 K/uL (0.1-1.30); MONOCYTES % (AUTO) 8.8 % (2.0-12.0); NEUTROPHILS # (AUTO) 5.1 K/uL (1.8-8.9); NEUTROPHILS % (AUTO) 74.9 % (43.0-81.0); PLATELET COUNT (AUTO) 259 K/uL (150-450); RED BLOOD CELL COUNT(AUTO) 3.56 MIL/uL (4.0-5.2); WHITE BLOOD COUNT (AUTO) 6.8 K/uL (4.3-11.0)
[2021-07-21 07:23] LABS: CALCIUM, SERUM 9.1 mg/dL (8.5-10.1); CARBON DIOXIDE 22 mmol/L (21-32); CHLORIDE 104 mmol/L (98-107); CREATININE 1.1 mg/dL (0.6-1.3); GLUCOSE 90 mg/dL (74-106); MAGNESIUM 2.1 mg/dL (1.8-2.4); PHOSPHORUS 3.6 mg/dL (2.5-4.9); POTASSIUM 4.1 mmol/L (3.5-5.1); SODIUM SERUM 135 mmol/L (136-145); UREA NITROGEN, BLOOD 18 mg/dL (7-18)
--- NOTE | 2021-07-21 07:30 | NUR ---
RUBBER EXTRUSION MACHINE OPERATOR AM NOTE PT IN BED AWAKE, AO X 1, MORE AWAKE NOW, SMILES. ON O2 VIA NC @ 2L, TOLERATING WELL. O2 SAT 97%, NO ACUTE DISTRESS, RESPIRATION UNLABORED, SR HR 63 ON MONITOR. NO SIGNS OF PAIN, NO GRIMACINGS. LAC IV ACCESS WITH NS AT 75 ML/HR INFUSING WELL, SITE CLEAR. ON SOFT DIET, CRUSH MEDS. SEE NURSING FLOWSHEET FOR SKIN ISSUES. ALL SAFETY PRECAUTIONS IN PLACE. BED LOCKED IN LOWEST POSITION, BED ALARM ON. CALL LIGHT WITHIN REACH. WILL TURN AND REPOSITION Q2 HOURS. WILL CONTINUE TO MONITOR.
[2021-07-21 08:00] VITALS: BP 124/74
[2021-07-21] MEDS: clonazePAM 1 MG TABLET PO SCH ×2 (08:40→16:22)
[2021-07-21] MEDS: SERTRALINE HCL 25 MG TABLET PO SCH (08:40)
[2021-07-21] MEDS: FAMOTIDINE (20 MG) 20 MG TABLET PO SCH (08:41)
[2021-07-21] MEDS: BACLOFEN (10 MG) 10 MG TABLET PO SCH ×3 (08:41→16:22)
[2021-07-21] MEDS: CLOPIDOGREL BISULFATE 75 MG TABLET PO SCH (08:41)
[2021-07-21] MEDS: ASPIRIN 81 MG TAB.CHEW PO SCH (08:41)
[2021-07-21] MEDS: CARBIDOPA/LEVODOPA 25/100 MG 1 UDTAB PO SCH ×3 (08:41→16:22)
[2021-07-21] MEDS: GABAPENTIN 100 MG CAPSULE PO SCH ×2 (08:41→16:22)
[2021-07-21] MEDS: CEFEPIME 2 GM in IV D5W 100 ML IV SCH ×2 (08:43→21:07)
[2021-07-21] MEDS: DICLOFENAC 0.1% OPTH DROPS 5 ML BOTTLE EACHEYE SCH (08:43)
[2021-07-21] MEDS: TIMOLOL MAL/DORZOLAM HCL OPHTH 10 ML BOTTLE EACHEYE SCH ×2 (08:43→16:27)
--- NOTE | 2021-07-21 09:30 | NUR ---
RN NOTES DUE MEDS GIVEN
[2021-07-21 12:00] VITALS: BP 110/70
[2021-07-21 16:00] VITALS: BP 135/66
[2021-07-21] MEDS: VANCOMYCIN 1 GM in IV D5W 250 ML IV SCH (17:58)
[2021-07-21] MEDS: IV NS 0.9% 1,000 ML IV PRN (18:18)
--- NOTE | 2021-07-21 18:51 | NUR ---
TELE PN RN NOTE NO SIGNIFICANT CHANGE THROUGHOUT THE SHIFT. PT REMAINED IN BED, ALERT , ORIENTED BY NAME AND PLACE OCCASIONALLY CONFUSED , ABLE TO VERBALIZE UNDERSTANDING . ON O2 VIA NC @ 2L, TOLERATING WELL. O2 SAT 100% NO ACUTE DISTRESS NOTED.HR REGULAR SN 60 , NO SOB NOTED. IV ACCESS AT LAC #18g INFUSING NS @75 CC/HR WITH SECONDARY DSW WITH VANCO AT 250 ML /HR TOTAL VALUE 250 ML .TOLERATING WELL. ALL DUE MEDS GIVEN. ALL NEEDS ATTENDED TO. ALL SAFETY PRECAUTIONS IN PLACE. BED LOCKED IN LOWEST POSITION, BED ALARM ON. CALL LIGHT WITHIN REACH. WILL ENDORSE TO AM SHIFT NURSE FOR PAM.
--- NOTE | 2021-07-21 19:52 | NUR ---
SIDEROGRAPHER NOTE PT IN BED AWAKE, AO X 1, NONVERBAL. ON O2 VIA NC @ 2L, TOLERATING WELL. NO SOB NOTED. NO ACUTE DISTRESS OR DISCOMFORT, RESPIRATION EVEN AND UNLABORED, HOB ELEVATED, WITH IV ACCESS AT LAC WITH NS AT 75 ML/HR INFUSING WELL. ON SOFT DIET, CRUSH MEDS. CALL LIGHT WITHIN REACH, BED IN LOWEST AND LOCKED POSITION, BED ALARM ON. WILL TURN AND REPOSITION Q2 HOURS. WILL CONTINUE TO MONITOR.
[2021-07-21 20:00] VITALS: BP 116/55
[2021-07-21] MEDS: SENNOSIDES 8.6 MG TABLET PO SCH (21:09)
[2021-07-21] MEDS: ATORVASTATIN 40 MG TABLET PO SCH (21:09)
[2021-07-21] MEDS: ENOXAPARIN SODIUM 40 MG/0.4 ML DISP.SYRIN SQ SCH (21:14)
--- NOTE | 2021-07-21 21:30 | NUR ---
RN NOTE ALL DUE MEDS GIVEN
[2021-07-22] VITALS: BP 114/58
[2021-07-22 04:00] VITALS: BP 114/56
[2021-07-22 06:16] LABS: BASOPHILS % (AUTO) 0.2 % (0.0-2.0); EOSINOPHILS % (AUTO) 1.3 % (0.0-6.0); HEMATOCRIT 31 % (33-45); HEMOGLOBIN 10.2 g/dL (11.5-14.8); LYMPHOCYTES % (AUTO) 14.3 % (20.0-44.0); MEAN CORPUSCULAR HGB CONC 33 g/dl (31.0-36.0); MEAN CORPUSCULAR VOLUME 86 fL (82-100); MONOCYTES # (AUTO) 0.5 K/uL (0.1-1.30); MONOCYTES % (AUTO) 7.2 % (2.0-12.0); NEUTROPHILS # (AUTO) 5.2 K/uL (1.8-8.9); PLATELET COUNT (AUTO) 304 K/uL (150-450); RED BLOOD CELL COUNT(AUTO) 3.56 MIL/uL (4.0-5.2); WHITE BLOOD COUNT (AUTO) 6.7 K/uL (4.3-11.0)
--- NOTE | 2021-07-22 06:31 | NUR ---
FREIGHT CHECKER CLOSING NOTE PT IN BED SLEEPING BUT EASILY AROUSABLE TO TOUCH, PT IS A/O 1-2, ABLE TO VERBALIZE NEEDS. ON O2 VIA NC @ 2L, TOLERATING WELL. NO SOB NOTED. NO ACUTE DISTRESS OR DISCOMFORT, RESPIRATION EVEN AND UNLABORED, HOB ELEVATED, ON TELEMONITORING CURRENTLY READING AT SR AT 60 BPM WITH IV ACCESS AT LAC WITH NS AT 75 ML/HR INFUSING WELL. ON SOFT DIET, CRUSH MEDS. ALL DUE MEDS GIVEN ORDERED WITH ASPIRATION PRECAUTION, KEPT DRY AND CLEAN, CALL LIGHT WITHIN REACH, BED IN LOWEST AND LOCKED POSITION, BED ALARM ON. WILL ENDORSE TO AM SHIFT NURSE.
[2021-07-22 07:17] LABS: CALCIUM, SERUM 9.1 mg/dL (8.5-10.1); CARBON DIOXIDE 23 mmol/L (21-32); CHLORIDE 104 mmol/L (98-107); CREATININE 1.2 mg/dL (0.6-1.3); GLUCOSE 95 mg/dL (74-106); MAGNESIUM 1.8 mg/dL (1.8-2.4); PHOSPHORUS 3.4 mg/dL (2.5-4.9); SODIUM SERUM 136 mmol/L (136-145); UREA NITROGEN, BLOOD 20 mg/dL (7-18)
--- NOTE | 2021-07-22 07:25 | NUR ---
RN OPENING NOTE RECEIVED PATIENT IN BED AWAKE, A/O X 2, NONVERBAL. ON O2 VIA NC @ 2LPM, TOLERATING WELL. BREATHING EVEN AND UNLABORED. NO ACUTE DISTRESS OR DISCOMFORT NOTED AT THE TIME, HOB ELEVATED, WITH IV ACCESS AT LAC #18G PATENT AND INTACT INFUSING NS AT 75 ML/HR. NO SIGNS OF INFILTRATION NOTED ON SITE. ALL SAFETY MEASURES IMPLEMENTED. CALL LIGHT WITHIN REACH, BED IN LOWEST AND LOCKED POSITION, BED ALARM ON. WILL CONTINUE TO MONITOR AND ASSESS FOR ANY CHANGES DURING SHIFT.
[2021-07-22 08:00] VITALS: BP 113/62
[2021-07-22] MEDS: FAMOTIDINE (20 MG) 20 MG TABLET PO SCH (08:14)
[2021-07-22] MEDS: CEFEPIME 2 GM in IV D5W 100 ML IV SCH (08:14)
[2021-07-22] MEDS: TIMOLOL MAL/DORZOLAM HCL OPHTH 10 ML BOTTLE EACHEYE SCH (08:14)
[2021-07-22] MEDS: clonazePAM 1 MG TABLET PO SCH (08:14)
[2021-07-22] MEDS: DICLOFENAC 0.1% OPTH DROPS 5 ML BOTTLE EACHEYE SCH (08:14)
[2021-07-22] MEDS: CARBIDOPA/LEVODOPA 25/100 MG 1 UDTAB PO SCH ×2 (08:15→12:00)
[2021-07-22] MEDS: CLOPIDOGREL BISULFATE 75 MG TABLET PO SCH (08:15)
[2021-07-22] MEDS: ASPIRIN 81 MG TAB.CHEW PO SCH (08:15)
[2021-07-22] MEDS: SERTRALINE HCL 25 MG TABLET PO SCH (08:15)
[2021-07-22] MEDS: GABAPENTIN 100 MG CAPSULE PO SCH (08:15)
[2021-07-22] MEDS: BACLOFEN (10 MG) 10 MG TABLET PO SCH ×2 (08:15→12:00)
[2021-07-22] MEDS: IV NS 0.9% 1,000 ML IV PRN (11:00)
[2021-07-22] MEDS ORDERED: CEPH500C2 PO (11:35)
[2021-07-22 12:00] VITALS: BP 111/60
--- NOTE | 2021-07-22 15:21 | NUR ---
RN NOTE REPORT GIVEN TO TIA CHISHOLM AT [facility].
[2021-07-22 16:00] VITALS: BP 119/62
--- NOTE | 2021-07-22 16:20 | NUR ---
RN NOTE PATIENT DISCHARGED IN STABLE CONDITION, VITAL SIGNS: TEMP-98.2, HR-61, RR-21, O2-99%, BP-119/62. PATIENT AWAKE, ALERT/ORIENTED X 2 ON O2 AT 2LPM VIA NC. ALL DUE MEDS GIVEN ORDERED. ALL NEEDS ANTICIPATED. KEPT PATIENT CLEAN DRY AND COMFORTABLE. DISCHARGE INSTRUCTIONS GIVEN TO EMT CREW. IV ACCESS ON LEFT AC, REMOVED NO BLEEDING NOTED ON SITE. PATIENT LEFT UNIT VIA GURNEY IN STABLE CONDITION.
== END 2021-07-22 16:15 | DRG 871 ==
LOC: ER 18:59 → TELE1 22:44
PROVIDERS: ADMIT Nurse Practitioner Acute Care; ATTEND Nurse Practitioner Acute Care
DX: A41.9 Sepsis, unspecified organism (principal); N17.0 Acute kidney failure with tubular necrosis; D68.59 Other primary thrombophilia; E44.0 Moderate protein-calorie malnutrition; E87.1 Hypo-osmolality and hyponatremia; N39.0 Urinary tract infection, site not specified; K92.2 Gastrointestinal hemorrhage, unspecified; Z66 Do not resuscitate; E86.1 Hypovolemia; E78.5 Hyperlipidemia, unspecified; I48.91 Unspecified atrial fibrillation; Z20.822 Contact with and (suspected) exposure to COVID-19; Z79.02 Long term (current) use of antithrombotics/antiplatelets; Z79.82 Long term (current) use of aspirin; Z74.01 Bed confinement status; E88.09 Other disorders of plasma-protein metabolism, not elsewhere classified; G20 Parkinson's disease; I10 Essential (primary) hypertension; Z95.810 Presence of automatic (implantable) cardiac defibrillator; D63.8 Anemia in other chronic diseases classified elsewhere; Z68.25 Body mass index [BMI] 25.0-25.9, adult; K21.9 Gastro-esophageal reflux disease without esophagitis; R53.1 Weakness; D50.0 Iron deficiency anemia secondary to blood loss (chronic)
CPT/HCPCS: 36415; 71045-TC; 80048-TC; 80061-TC; 80076-TC; 80202-TC; 81001; 83605-TC; 83735-TC; 83880; 84100-TC; 84484-TC; 85025-TC; 85730-TC; 87040-TC; 87081-TC; 87086-TC; C9803; G0378; J0692; J1650; J3370; J7030; J7060; U0003

== ENCOUNTER 2022-09-20 22:48 | Inpatient (IN) | payer MEDICARE, OTHER ==
[~2022-09-20] VITALS: Ht 160 cm; Wt 71.2 kg
[~2022-09-20 22:48] MED LIST changes: +CEPH500C2 PO; +DICL2.5D EACHEYE; -NEPA3DRO OP; +NETA2.5D3 EACHEYE; -SODI45SP6 NS
--- NOTE | 2022-09-20 23:06 | NUR ---
Patient AOx2-3, able to express her concerns. Delayed responses. Patient c/o abdominal discomfort "abdomen feels stiff". Discussed plan of care, pt verbalized understanding.
[2022-09-20] MEDS ORDERED: CT SWABBABLE VALVE TRANS SET 1 EA INFUS.SET MC ONE (23:11)
[2022-09-20] MEDS ORDERED: IOHEXOL-350 100 ML VIAL IV ONE (23:11)
[2022-09-20] MEDS ORDERED: IV NS 0.9% 250 ML IV ONE (23:11)
[2022-09-20 23:29] LABS: BASOPHILS % (AUTO) 0.3 % (0.0-2.0); EOSINOPHILS % (AUTO) 3.4 % (0.0-6.0); HEMATOCRIT 37 % (33-45); HEMOGLOBIN 12.4 g/dL (11.5-14.8); LYMPHOCYTES % (AUTO) 38.4 % (20.0-44.0); MEAN CORPUSCULAR HGB CONC 34 g/dl (31.0-36.0); MEAN CORPUSCULAR VOLUME 85 fL (82-100); MONOCYTES # (AUTO) 0.5 K/uL (0.1-1.30); MONOCYTES % (AUTO) 9.9 % (2.0-12.0); NEUTROPHILS # (AUTO) 2.5 K/uL (1.8-8.9); PLATELET COUNT (AUTO) 122 K/uL (150-450); WHITE BLOOD COUNT (AUTO) 5.3 K/uL (4.3-11.0)
[2022-09-20] MEDS ORDERED: ACETAMINOPHEN 325 MG TABLET PO ONE (23:30)
[2022-09-20] MEDS ORDERED: ACETAMINOPHEN ES 500 MG TABLET ONE (23:33)
[2022-09-20 23:41] LABS: CALCIUM, SERUM 9.1 mg/dL (8.5-10.1); CARBON DIOXIDE 24 mmol/L (21-32); CHLORIDE 107 mmol/L (98-107); CREATININE 1.1 mg/dL (0.6-1.3); GLUCOSE 113 mg/dL (74-106); POTASSIUM 3.8 mmol/L (3.5-5.1); SODIUM SERUM 142 mmol/L (136-145); UREA NITROGEN, BLOOD 23 mg/dL (7-18)
[2022-09-20 23:50] LABS: ALANINE AMINOTRANSFERASE 10 U/L (12-78); ALBUMIN 3.1 g/dL (3.4-5.0); ALKALINE PHOSPHATASE 96 U/L (46-116); ASPARTATE AMINOTRANSFERASE 14 U/L (15-37); BILIRUBIN,DIRECT 0.1 mg/dL (0.0-0.2); BILIRUBIN,TOTAL 0.3 mg/dL (0.2-1.0); LIPASE 170 U/L (73-393); TOTAL PROTEIN, SERUM 7.3 g/dL (6.4-8.2)
--- NOTE | 2022-09-20 23:54 | NUR ---
Urine collected, sent to lab
[2022-09-21] MEDS ORDERED: IV NS 0.9% 1,000 ML IV ONE
[2022-09-21 01:06] LABS: BILIRUBIN,URINE NEGATIVE (NEGATIVE); COLOR,URINE YELLOW (YELLOW); LEUKOCYTE ESTERASE ,URINE 3+ (NEGATIVE); NITRITE, URINE POSITIVE (NEGATIVE); PROTEIN,URINE TRACE mg/dl (NEGATIVE); UGLUCOSE NEGATIVE (NEGATIVE); UROBILINOGEN,URINE 0.2 EU/dL (0.2)
[2022-09-21 01:23] LABS: BACTERIA,URINE Many /HPF (None Seen); RBC,URINE 0-2 /HPF (0-2); SQUAMOUS EPITHELIAL CELL,UR 0-2 /HPF (None Seen); WBC,URINE 21-50 /HPF (0-3)
[2022-09-21] MEDS ORDERED: CEFTRIAXONE 1GM BAG (ER ONLY) 50 ML IV ONE (01:57)
[2022-09-21] MEDS ORDERED: CEFTRIAXONE 1GM BAG (ER ONLY) 1 GM/50 ML PIGGYBACK IV ONE (02:00)
--- NOTE | 2022-09-21 02:18 | NUR ---
MOVE SHEET GIVEN TO ADMITING
[2022-09-21] MEDS ORDERED: ONDANSETRON HCL/PF 4 MG/2 ML VIAL IVP PRN (03:00)
[2022-09-21] MEDS ORDERED: MORPHINE SULFATE INJ 2 MG/ML DISP.SYRIN IV PRN (03:00)
[2022-09-21] MEDS ORDERED: ACETAMINOPHEN 325 MG TABLET PO PRN (03:00)
--- NOTE | 2022-09-21 03:18 | NUR ---
RM 313-1
--- NOTE | 2022-09-21 03:28 | NUR ---
REPORT GIVEN TO ZAC BETH
[2022-09-21] MEDS: ENOXAPARIN SODIUM 40 MG/0.4 ML DISP.SYRIN SQ SCH ×2 (03:31→21:16)
--- NOTE | 2022-09-21 03:31 | NUR ---
RN Note Received Pt report from charge nurse, Ludy. Will wait for pt to arrive.
--- NOTE | 2022-09-21 05:45 | NUR ---
RN Admitting Note Pt was transferred from ER via gurney and arrived at unit at 0530. Oriented to room setting and educated on how to use call lights. V/S stable and recorded. Skin assessment done, and picture taken. All belonging checked and signed. Pt was awake, appears comfortable. A/O*4, delayed response, follow directions. No pain noted. On oxygen 2L NC, breathing even and unlabored, no distress or SOB noted. clinical research monitor capturing SR at 60 bpm, no cardiac distress noted. IV access left AC 18G SL. Fall and safety precaution in place. Bed alarm on, be in low and locked position, call lights and table in easy reach, and side rails up *3. Will continue monitoring.
[2022-09-21] MEDS: IV NS 0.9% 1,000 ML IV SCH ×2 (05:49→16:09)
--- NOTE | 2022-09-21 06:25 | NUR ---
RN Note Pt EKG completed. The record was filed in the pt's chart.
--- NOTE | 2022-09-21 06:33 | NUR ---
RN Note Held Lovenox for DVT prophylaxi due to Pt platelet was low, 122.
--- NOTE | 2022-09-21 07:30 | NUR ---
OPENING NOTES PATIENT AWAKE IN BED, A/O X4. NO S/S OF PAIN NOTED AT THIS TIME. ON O2 AT 2 LPM VIA NASAL CANNULA, BREATHING EVEN AND UNLABORED, NO DISTRESS OR SOB NOTED. IV ACCESS LAC ML #18G WITH NS ON 75 ML/HOUR INTACT, PATENT AND INFUSING WELL. PATIENT ON EXTERNAL ART INSTALLER WITH READING OF SINUS RHYTHM WITH HR OF 70 NO CARDIAC DISTRESS NOTED. FALL AND SAFETY MEASURES IN PLACE AND MAINTAINED AT ALL TIMES, BED ALARM ON, BED IN LOW AND LOCK POSITION, CALL LIGHT AND TABLE WITHIN EASY REACH, SIDE RAILS UP X2. WILL CONTINUE TO MONITOR THE PATIENT.
--- NOTE | 2022-09-21 07:46 | NUR ---
RN Closing Note Pt was awake, appears comfortable. A/O*4, delayed response, follow directions. No pain noted. On oxygen 2L NC, breathing even and unlabored, no distress or SOB noted. cardiac monitor technician capturing SR at 62 bpm, no cardiac distress noted. IV access left AC 18G SL. All needs attended. Encouraged to turn and reposition, and self-care. Fall and safety precaution in place and maintained. Bed alarm on, be in low and locked position, call lights and table in easy reach, and side rails up *3. Will endorse to day shift. Addendum: 09/21/22 at 0748 by MYLA CHARLES RN Addition: Pt has cardiac pacemaker on left upper chest.
[2022-09-21] MEDS: CARBIDOPA/LEVODOPA 25/100 MG 1 UDTAB PO SCH ×3 (08:15→16:05)
[2022-09-21] MEDS: DOCUSATE SODIUM 100 MG CAPSULE PO SCH ×2 (08:15→16:05)
[2022-09-21] MEDS: SERTRALINE HCL 50 MG TABLET PO SCH (08:16)
[2022-09-21] MEDS: clonazePAM 1 MG TABLET PO SCH ×2 (08:16→16:05)
[2022-09-21] MEDS: FAMOTIDINE (20 MG) 20 MG TABLET PO SCH (08:16)
[2022-09-21] MEDS: GABAPENTIN 300 MG CAPSULE PO SCH ×2 (08:16→20:47)
[2022-09-21] MEDS: BACLOFEN (10 MG) 10 MG TABLET PO SCH ×3 (08:17→16:05)
[2022-09-21] MEDS: ASPIRIN 81 MG TAB.CHEW PO SCH (08:17)
[2022-09-21] MEDS: CLOPIDOGREL BISULFATE 75 MG TABLET PO SCH (08:17)
[2022-09-21] MEDS: TIMOLOL MAL/DORZOLAM HCL OPHTH 10 ML BOTTLE EACHEYE SCH ×2 (08:35→16:09)
[2022-09-21 08:45] VITALS: BP 131/92; TEMP 98.4; O2SAT 97
[2022-09-21] MEDS ORDERED: DICLOFENAC 0.1% OPTH DROPS 5 ML BOTTLE EACHEYE SCH (09:00)
--- NOTE | 2022-09-21 09:55 | NUR ---
RN NOTE CALLED PHARMACY SPOKE TO NATALYA REGARDING DICLOFENAC OPTHALMIC DROPS, PHARMACIST SAID MEDICATION WILL STILL BE AVAILABLE TOMORROW. WILL CONTINUE TO MONITOR THE PATIENT
[2022-09-21 16:56] VITALS: BP 112/68; TEMP 98.5; O2SAT 96
--- NOTE | 2022-09-21 19:30 | NUR ---
MS RN OPENING NOTE RECEIVED PATIENT WITH HOB ELEVATED, ALERT AND ORIENTED X4. ABLE TO MAKE NEEDS KNOWN. AFEBRILE AND NOT IN ANY FORM OF ACUTE DISTRESS. ON O2 INHALATION VIA NASAL CANNULA AT 2LPM, SATURATING WELL. WITH L ACW PACEMAKER. WITH IV ACCESS ON LAC 18G RUNNING WITH NS AT 75ML/HR. SAFETY MEASURES IN PLACE. KEPT BED IN LOCKED AND IN LOW POSITION. SIDE RAILS UP X2. ADVISED TO USE THE CALL LIGHT WHEN IN NEED OF ASSISTANCE.
--- NOTE | 2022-09-21 19:40 | NUR ---
CLOSING NOTES PATIENT AWAKE IN BED, A/O X4. NO S/S OF PAIN NOTED AT THIS TIME. ON O2 AT 2 LPM VIA NASAL CANNULA, BREATHING EVEN AND UNLABORED, NO DISTRESS OR SOB NOTED. IV ACCESS LAC ML #18G WITH NS ON 75 ML/HOUR INTACT, PATENT AND INFUSING WELL. TURN TO SIDES Q2H PER PROTOCOL. SKIN CARE IMPLEMENTED. FALL AND SAFETY MEASURES IN PLACE AND MAINTAINED AT ALL TIMES, BED ALARM ON, BED IN LOW AND LOCK POSITION, CALL LIGHT AND TABLE WITHIN EASY REACH, SIDE RAILS UP X2. WILL ENDORSE TO ROTARY DUMP OPERATOR NURSE
[2022-09-21 20:00] VITALS: BP_SYST 123; BP_SYST 124; BP_DIAS 64; BP_DIAS 78; TEMP 97.5; TEMP 97.6; O2SAT 96; O2SAT 98
[2022-09-21] MEDS: ATORVASTATIN 40 MG TABLET PO SCH (21:13)
[2022-09-21] MEDS: CEFTRIAXONE 1 G in IV D5W 50 ML IV SCH (21:13)
[2022-09-22] MEDS: IV NS 0.9% 1,000 ML IV SCH (05:40)
--- NOTE | 2022-09-22 06:30 | NUR ---
MS RN CLOSING NOTE PATIENT IN BED, ASLEEP BUT EASY TO AROUSE AND RESPONSIVE. WITH HOB ELEVATED. ALERT AND ORIENTED X4. ABLE TO MAKE NEEDS KNOWN. AFEBRILE AND NOT IN ANY FORM OF ACUTE DISTRESS. ON O2 INHALATION VIA NASAL CANNULA AT 2LPM, SATURATING WELL. WITH LEFT ACW PACEMAKER. WITH IV ACCESS ON LAC 18G RUNNING WITH NS AT 75ML/HR. MEDICATED ORDERED. CONTINUOUS ON IV ATB, MONITORED FOR ANY ADVERSE REACTION. SAFETY MEASURES IN PLACE. KEPT BED IN LOCKED AND IN LOW POSITION. SIDE RAILS UP X2. ADVISED TO USE THE CALL LIGHT WHEN IN NEED OF ASSISTANCE. ALL NURSING NEEDS ATTENDED. ENDORSED TO INCOMING SHIFT FOR CONTINUITY OF CARE.
[2022-09-22 07:01] LABS: BASOPHILS % (AUTO) 0.4 % (0.0-2.0); EOSINOPHILS % (AUTO) 2.9 % (0.0-6.0); HEMATOCRIT 33 % (33-45); HEMOGLOBIN 10.9 g/dL (11.5-14.8); LYMPHOCYTES # (AUTO) 1.5 K/uL (0.8-4.8); LYMPHOCYTES % (AUTO) 28.9 % (20.0-44.0); MEAN CORPUSCULAR HGB CONC 33 g/dl (31.0-36.0); MEAN CORPUSCULAR VOLUME 87 fL (82-100); MONOCYTES # (AUTO) 0.5 K/uL (0.1-1.30); MONOCYTES % (AUTO) 9.9 % (2.0-12.0); NEUTROPHILS % (AUTO) 57.9 % (43.0-81.0); PLATELET COUNT (AUTO) 106 K/uL (150-450); RED BLOOD CELL COUNT(AUTO) 3.79 MIL/uL (4.0-5.2); WHITE BLOOD COUNT (AUTO) 5.2 K/uL (4.3-11.0)
--- NOTE | 2022-09-22 07:05 | NUR ---
MS RN OPENING NOTE RECEIVED PATIENT IN BED, EYES CLOSED AND RESPONSIVE TO NAME. WITH HOB ELEVATED. ALERT AND ORIENTED X3-4. ABLE TO MAKE NEEDS KNOWN. AFEBRILE AND NOT IN ANY FORM OF ACUTE DISTRESS. ON O2 INHALATION VIA NASAL CANNULA AT 2LPM, SATURATING WELL. WITH LEFT ACW PACEMAKER. WITH IV ACCESS ON LAC 18G RUNNING WITH NS AT 75ML/HR. SAFETY MEASURES IN PLACE. KEPT BED IN LOCKED AND IN LOW POSITION. SIDE RAILS UP X2. ADVISED TO USE THE CALL LIGHT WHITMN REACH WILL CONTINUE TO MONITOR.
[2022-09-22 07:47] LABS: POTASSIUM 4.5 mmol/L (3.5-5.1)
[2022-09-22 07:48] LABS: ALBUMIN 2.9 g/dL (3.4-5.0); BILIRUBIN,TOTAL 0.2 mg/dL (0.2-1.0); CALCIUM, SERUM 8.5 mg/dL (8.5-10.1); CREATININE 1.3 mg/dL (0.6-1.3); MAGNESIUM 1.8 mg/dL (1.8-2.4); PHOSPHORUS 3.9 mg/dL (2.5-4.9); TOTAL PROTEIN, SERUM 6.9 g/dL (6.4-8.2)
[2022-09-22 08:00] VITALS: BP 133/55; TEMP 98.4; O2SAT 99
[2022-09-22] MEDS: CARBIDOPA/LEVODOPA 25/100 MG 1 UDTAB PO SCH ×3 (08:50→16:20)
[2022-09-22] MEDS: BACLOFEN (10 MG) 10 MG TABLET PO SCH ×3 (08:50→16:19)
[2022-09-22] MEDS: ASPIRIN 81 MG TAB.CHEW PO SCH (08:50)
[2022-09-22] MEDS: CLOPIDOGREL BISULFATE 75 MG TABLET PO SCH (08:50)
[2022-09-22] MEDS: DOCUSATE SODIUM 100 MG CAPSULE PO SCH ×2 (08:50→16:20)
[2022-09-22] MEDS: TIMOLOL MAL/DORZOLAM HCL OPHTH 10 ML BOTTLE EACHEYE SCH ×2 (08:51→16:25)
[2022-09-22] MEDS: FAMOTIDINE (20 MG) 20 MG TABLET PO SCH (08:51)
[2022-09-22] MEDS: clonazePAM 1 MG TABLET PO SCH ×2 (08:51→16:20)
[2022-09-22] MEDS: GABAPENTIN 300 MG CAPSULE PO SCH ×2 (08:51→21:24)
[2022-09-22] MEDS: SERTRALINE HCL 50 MG TABLET PO SCH (08:51)
[2022-09-22] MEDS: IV NS 0.9% 1,000 ML IV PRN ×2 (08:57→20:41)
[2022-09-22] MEDS: PROSOURCE / PROSTAT (PYXIS) 30 ML UDC PO SCH ×2 (12:45→16:20)
[2022-09-22 16:08] VITALS: BP 137/71; TEMP 98.4; O2SAT 98
[2022-09-22] MEDS ORDERED: NITR0.4T48 SL (16:19)
[2022-09-22] MEDS ORDERED: Cyclosporine EACHEYE (16:19)
[2022-09-22] MEDS ORDERED: MELA5TAB PO (16:19)
[2022-09-22] MEDS ORDERED: NETA2.5D EACHEYE (16:19)
[2022-09-22] MEDS ORDERED: DEXT15DR6 EACHEYE (16:19)
[2022-09-22] MEDS ORDERED: GUAI100S9 PO (16:19)
[2022-09-22] MEDS ORDERED: CLON0.5T PO (16:19)
[2022-09-22] MEDS ORDERED: GABA-532 PO (16:19)
[2022-09-22] MEDS ORDERED: LUMIGAN EACHEYE (16:19)
--- NOTE | 2022-09-22 16:45 | NUR ---
TRANSFER OF CARE CARE WAS TRANSFERRED FROM RODERICK CHISHOLM. PATIENT IS IN BED RESTING AWAKE A/OX3. CONFUSED. ON NC 2L, NO S/S OF SOB OR DISTRESS. DENIES PAIN AT THIS TIME. IV ACCESS LAC 18G RUNNING NS 75ML/HR. R HAND DISCOLORATION AND SACRAL REDNESS. FALL AND SAFETY PRECAUTION MAINTAINED.
--- NOTE | 2022-09-22 18:46 | NUR ---
CLOSING NOTE PATIENT IN BED AWAKE, A/Ox3 CONFUSED AND FORGET AT TIMES.ON ROOM AIR WITH NO S/S OF SOB OR DISTRESS. DENIES ANY PAIN AT THIS TIME. PATIENT COMPLIANT AND COOPERATIVE TO CARE SINCE TRANSFER OF CARE. IV ON LAC 18G INTACT AND PATIENT, RUNNING NS 75ML/HR. FALL AND SAFETY PRECAUTION IN MAINTAINED: BED LOCKED AND AT THE LOWEST POSITION, SRx2, CALL LIGHT WITHIN REACH.
--- NOTE | 2022-09-22 19:31 | NUR ---
MS RN OPENING NOTE RECEIVED PATIENT IN BED AWAKED AOX3 WITH CONFUSION,ABLE TO MAKE NEEDS KNOWN,ON 2I 02 VIA NC AYDIN WELL SAT 99%,WITH LEFT ACW PACEMAKER,NO SIGN SOB/DISTRESS NOTED,WITH IV ACCESS ON LAC 18G RUNNING WITH NS AT 75ML/HR. SAFETY MEASURES IN PLACE. KEPT BED IN LOCKED AND IN LOW POSITION. SIDE RAILS UP X2. ADVISED TO USE THE CALL LIGHT WHITIN REACH WILL CONTINUE TO MONITOR.
[2022-09-22 20:45] VITALS: BP 142/73; TEMP 97.7; O2SAT 93
[2022-09-22] MEDS: ATORVASTATIN 40 MG TABLET PO SCH (21:24)
[2022-09-22] MEDS: CEFTRIAXONE 1 G in IV D5W 50 ML IV SCH (21:24)
[2022-09-22] MEDS: ENOXAPARIN SODIUM 40 MG/0.4 ML DISP.SYRIN SQ SCH (21:25)
--- NOTE | 2022-09-23 06:24 | NUR ---
MS RN CLOSING NOTE; PATIENT IN BED AWAKED AOX3 WITH CONFUSION,ABLE TO MAKE NEEDS KNOWN,ON 2I 02 VIA NC AYDIN WELL SAT 98%,WITH LEFT ACW PACEMAKER,NO SIGN SOB/DISTRESS NOTED,NO PAIN/DISCOMFORT DURING SHIFT,WITH IV ACCESS ON LAC 18G RUNNING WITH NS AT 75ML/HR.DUE MEDS GIVEN ORDER,ALL NEEDS ATTENDED, SAFETY MEASURES IN PLACE. KEPT BED IN LOCKED AND IN LOW POSITION. SIDE RAILS UP X2.CALL LIGHT ELNAIN REACH,WILL ENDORSED TO NEXT SHIFT.
--- NOTE | 2022-09-23 07:05 | NUR ---
MS RN OPENING NOTE RECEIVED PATIENT IN BED, AWAKE AND RESPONSIVE TO NAME. WITH HOB ELEVATED. ALERT AND ORIENTED X3. AFEBRILE AND NOT IN ANY FORM OF ACUTE DISTRESS. NO SIGNS OF SOB AT THIS TIME. CURRENTLY ON O2 INHALATION VIA NASAL CANNULA AT 2LPM, SATURATING WELL. WITH LEFT ACW PACEMAKER. WITH IV ACCESS ON LAC 18G RUNNING WITH NS AT 75ML/HR. SAFETY MEASURES IN PLACE. KEPT BED IN LOCKED AND IN LOW POSITION. SIDE RAILS UP X2. ADVISED TO USE THE CALL LIGHT WHITNV REACH WILL CONTINUE TO MONITOR.
[2022-09-23] MEDS: PROSOURCE / PROSTAT (PYXIS) 30 ML UDC PO SCH ×3 (07:19→16:12)
[2022-09-23 07:46] LABS: CALCIUM, SERUM 9.4 mg/dL (8.5-10.1); CREATININE 1.1 mg/dL (0.6-1.3); POTASSIUM 4.4 mmol/L (3.5-5.1)
[2022-09-23] MEDS: clonazePAM 1 MG TABLET PO SCH ×2 (08:11→16:12)
[2022-09-23] MEDS: SERTRALINE HCL 50 MG TABLET PO SCH (08:11)
[2022-09-23] MEDS: TIMOLOL MAL/DORZOLAM HCL OPHTH 10 ML BOTTLE EACHEYE SCH ×2 (08:11→16:12)
[2022-09-23] MEDS: BACLOFEN (10 MG) 10 MG TABLET PO SCH ×3 (08:11→16:12)
[2022-09-23] MEDS: CARBIDOPA/LEVODOPA 25/100 MG 1 UDTAB PO SCH ×3 (08:11→16:12)
[2022-09-23] MEDS: CLOPIDOGREL BISULFATE 75 MG TABLET PO SCH (08:12)
[2022-09-23] MEDS: GABAPENTIN 300 MG CAPSULE PO SCH ×2 (08:12→20:24)
[2022-09-23] MEDS: DOCUSATE SODIUM 100 MG CAPSULE PO SCH ×2 (08:12→16:12)
[2022-09-23] MEDS: FAMOTIDINE (20 MG) 20 MG TABLET PO SCH (08:12)
[2022-09-23] MEDS: ASPIRIN 81 MG TAB.CHEW PO SCH (08:12)
[2022-09-23 08:30] VITALS: BP 128/76; TEMP 98.4; O2SAT 99
[2022-09-23 16:00] VITALS: BP 124/72; TEMP 98.4; O2SAT 96
--- NOTE | 2022-09-23 18:30 | NUR ---
RN CLOSING NOTE PATIENT IN BED, AWAKE AND RESPONSIVE TO NAME. WITH HOB ELEVATED. ALERT AND ORIENTED X2-3. AFEBRILE AND NOT IN ANY FORM OF ACUTE DISTRESS. NO SIGNS OF SOB AT THIS TIME. CURRENTLY ON O2 INHALATION VIA NASAL CANNULA AT 2LPM, SATURATING WELL. WITH LEFT ACW PACEMAKER. WITH IV ACCESS ON LAC 18G RUNNING WITH NS AT 75ML/HR. SAFETY MEASURES IN PLACE. KEPT BED IN LOCKED AND IN LOW POSITION. SIDE RAILS UP X2. ADVISED TO USE THE CALL LIGHT [employer] REACH . ALL DUE MEDS GIVEN. WILL ENDORSE TO NOC SHIFT FOR PAM.
[2022-09-23] MEDS: IV NS 0.9% 1,000 ML IV PRN (18:45)
[2022-09-23 20:00] VITALS: BP 135/65; TEMP 98.3; O2SAT 96
[2022-09-23] MEDS: CEFTRIAXONE 1 G in IV D5W 50 ML IV SCH (21:34)
[2022-09-23] MEDS: ATORVASTATIN 40 MG TABLET PO SCH (21:34)
[2022-09-23] MEDS: ENOXAPARIN SODIUM 40 MG/0.4 ML DISP.SYRIN SQ SCH (21:35)
--- NOTE | 2022-09-24 05:00 | NUR ---
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
[2022-09-24 07:05] LABS: BASOPHILS % (AUTO) 0.3 % (0.0-2.0); EOSINOPHILS % (AUTO) 2.8 % (0.0-6.0); HEMATOCRIT 34 % (33-45); HEMOGLOBIN 11.5 g/dL (11.5-14.8); LYMPHOCYTES # (AUTO) 1.6 K/uL (0.8-4.8); LYMPHOCYTES % (AUTO) 32.7 % (20.0-44.0); MEAN CORPUSCULAR HGB CONC 34 g/dl (31.0-36.0); MEAN CORPUSCULAR VOLUME 85 fL (82-100); MONOCYTES # (AUTO) 0.5 K/uL (0.1-1.30); NEUTROPHILS # (AUTO) 2.6 K/uL (1.8-8.9); NEUTROPHILS % (AUTO) 54.2 % (43.0-81.0); PLATELET COUNT (AUTO) 111 K/uL (150-450); RED BLOOD CELL COUNT(AUTO) 4.04 MIL/uL (4.0-5.2); WHITE BLOOD COUNT (AUTO) 4.9 K/uL (4.3-11.0)
--- NOTE | 2022-09-24 07:30 | NUR ---
MS RN OPENING NOTE RECEIVED PATIENT IN BED, AWAKE AND RESPONSIVE TO NAME. WITH HOB ELEVATED. ALERT AND ORIENTED X2. AFEBRILE AND NOT IN ANY FORM OF ACUTE DISTRESS. NO SIGNS OF SOB AT THIS TIME. CURRENTLY ON O2 INHALATION VIA NASAL CANNULA AT 2LPM, SATURATING WELL. DENIES PAIN AT THIS TIME. WITH LEFT ACW PACEMAKER. WITH IV ACCESS ON LAC 18G RUNNING WITH NS AT 75ML/HR. SAFETY MEASURES IN PLACE. KEPT BED IN LOCKED AND IN LOW POSITION. SIDE RAILS UP X2. ADVISED TO USE THE CALL LIGHT [facility], WILL ADMINISTER ALL SCHEDULED MEDS AND WILL CONTINUE TO MONITOR.
[2022-09-24 07:35] LABS: CALCIUM, SERUM 8.7 mg/dL (8.5-10.1); CREATININE 1.2 mg/dL (0.6-1.3); MAGNESIUM 1.7 mg/dL (1.8-2.4); PHOSPHORUS 3.3 mg/dL (2.5-4.9); POTASSIUM 4.3 mmol/L (3.5-5.1)
[2022-09-24] MEDS ORDERED: IV D5W 1,000 ML IV PRN (08:30)
[2022-09-24] MEDS: CLOPIDOGREL BISULFATE 75 MG TABLET PO SCH (08:55)
[2022-09-24] MEDS: ASPIRIN 81 MG TAB.CHEW PO SCH (08:55)
[2022-09-24] MEDS: DOCUSATE SODIUM 100 MG CAPSULE PO SCH (08:55)
[2022-09-24] MEDS: CARBIDOPA/LEVODOPA 25/100 MG 1 UDTAB PO SCH (08:55)
[2022-09-24] MEDS: SERTRALINE HCL 50 MG TABLET PO SCH (08:55)
[2022-09-24] MEDS: GABAPENTIN 300 MG CAPSULE PO SCH (08:55)
[2022-09-24] MEDS: clonazePAM 1 MG TABLET PO SCH (08:55)
[2022-09-24] MEDS: PROSOURCE / PROSTAT (PYXIS) 30 ML UDC PO SCH (08:55)
[2022-09-24] MEDS: BACLOFEN (10 MG) 10 MG TABLET PO SCH (08:56)
[2022-09-24] MEDS: FAMOTIDINE (20 MG) 20 MG TABLET PO SCH (08:56)
[2022-09-24] MEDS: TIMOLOL MAL/DORZOLAM HCL OPHTH 10 ML BOTTLE EACHEYE SCH (09:14)
[2022-09-24] MEDS ORDERED: MAGNESIUM OXIDE 400 MG TABLET PO ONE (10:00)
--- NOTE | 2022-09-24 11:14 | NUR ---
RN NOTES GIVEN REPORT TO MARCELA AT [facility]
--- NOTE | 2022-09-24 11:20 | NUR ---
TOUR ESC[facility] NOTES PT DISCHARGE VIA GURNEY ACCOMPANIED BY 2 COLORED LEATHER SETTER AROUND 1120. PT STABLE, NO DISTRESS, DENIES PAIN. IV ACCESS MAINTAINED IN PLACE FOR IV ABX CONTINUATION IN SNF. NO BELONGINGS. SKIN INTACT. DISCVHARGE INSTRUCTIONS GIVEN TO TRANSPORTER. CHARGE NURSE AWARE.
== END 2022-09-24 11:30 | DRG 689 ==
LOC: ER 22:49 → MED 09-21 03:19 → TELE 09-21 05:50 → MED 09-21 12:45
PROVIDERS: ADMIT Nurse Practitioner Acute Care; ATTEND Nurse Practitioner Family
DX: N39.0 Urinary tract infection, site not specified (principal); G93.41 Metabolic encephalopathy; E44.1 Mild protein-calorie malnutrition; F02.83 Dementia in other diseases classified elsewhere, unspecified severity, with mood disturbance; D68.69 Other thrombophilia; I25.10 Atherosclerotic heart disease of native coronary artery without angina pectoris; E27.8 Other specified disorders of adrenal gland; E78.5 Hyperlipidemia, unspecified; E88.09 Other disorders of plasma-protein metabolism, not elsewhere classified; F32.A Depression, unspecified; I50.9 Heart failure, unspecified; I11.0 Hypertensive heart disease with heart failure; K21.9 Gastro-esophageal reflux disease without esophagitis; R62.7 Adult failure to thrive; Z66 Do not resuscitate; Z79.82 Long term (current) use of aspirin; I71.43 Infrarenal abdominal aortic aneurysm, without rupture; G20 Parkinson's disease; Z95.0 Presence of cardiac pacemaker; Z74.09 Other reduced mobility; K76.89 Other specified diseases of liver; E66.9 Obesity, unspecified; Z68.27 Body mass index [BMI] 27.0-27.9, adult; B96.20 Unspecified Escherichia coli [E. coli] as the cause of diseases classified elsewhere
CPT/HCPCS: 36415; 71045-TC; 74175-TC; 80048-TC; 80053-TC; 80076-TC; 81001; 83605-TC; 83690-TC; 83735-TC; 84100-TC; 85025-TC; 87040-TC; 87086-TC; 92526; 92611-TC; 97112-TC; 97116-TC; 97530-TC; A4223; G0378; J0696; J1650; J7030; J7050; J7060; Q9967

== ENCOUNTER 2024-12-29 14:26 | Inpatient (IN) | payer MEDICARE, OTHER ==
[~2024-12-29] VITALS: Ht 170.2 cm; Wt 71.2 kg
[~2024-12-29 14:26] MED LIST changes: -CEPH500C2 PO; +CLON0.5T PO; -CLON1TAB PO; +Cyclosporine EACHEYE; +DEXT15DR6 EACHEYE; +GUAI100S9 PO; +LUMIGAN EACHEYE; -MELA3TAB41 PO; +MELA5TAB PO; -NAPR-1009 PO; +NETA2.5D EACHEYE; -NETA2.5D3 EACHEYE; +NITR0.4T48 SL; -POLY17PO4 PO
[2024-12-29] MEDS: IV NS 0.9% 1,000 ML BAG IV ONE (14:41)
[2024-12-29 14:46] LABS: RED BLOOD CELL COUNT(AUTO) 4.22 MIL/uL (4.0-5.2); RED CELL DISTRIBUTION WIDTH 15.3 % (11.5-15.0); WHITE BLOOD COUNT (AUTO) 6.9 K/uL (4.3-11.0)
[2024-12-29 14:47] LABS: PLATELET COUNT (AUTO) 150 K/uL (150-450)
[2024-12-29 14:55] LABS: CALCIUM, SERUM 8.5 mg/dL (8.5-10.1); CREATININE 1.2 mg/dL (0.6-1.3); SODIUM SERUM 137 mmol/L (136-145); UREA NITROGEN, BLOOD 25 mg/dL (7-18)
[2024-12-29 15:01] LABS: ASPARTATE AMINOTRANSFERASE 19 U/L (15-37); TOTAL PROTEIN, SERUM 8.1 g/dL (6.4-8.2)
[2024-12-29 17:00] VITALS: BP 131/65; TEMP 97.3; O2SAT 98
[2024-12-29] MEDS ORDERED: SENNOSIDES/DOCUSATE SODIUM 1 TAB TABLET PO PRN (17:30)
[2024-12-29] MEDS ORDERED: ONDANSETRON HCL/PF 4 MG/2 ML VIAL IVP PRN (17:30)
[2024-12-29] MEDS ORDERED: MAG HYDROX/AL HYDROX/SIMETH 30 ML UDC PO PRN (17:30)
[2024-12-29] MEDS: ENOXAPARIN SODIUM 40 MG/0.4 ML DISP.SYRIN SQ SCH (18:00)
[2024-12-29] MEDS: LACTULOSE 10 G/15 ML UDC (PYXIS) PO ONE (18:23)
[2024-12-29] MEDS: SORBITOL SOLUTION 70% 30 ML SOLUTION PO SCH (18:23)
[2024-12-29] MEDS: BISACODYL SUPP (10 MG) 10 MG/SUPP.RECT SUPP.RECT RC ONE (18:24)
[2024-12-29] MEDS: DOCUSATE SODIUM 100 MG CAPSULE PO SCH (18:28)
[2024-12-29] MEDS: IV NS 0.9% 1,000 ML IV PRN (19:24)
[2024-12-29 20:38] VITALS: BP 145/86; TEMP 97.7; O2SAT 96
[2024-12-29] MEDS ORDERED: POLYVINYL ALCOHOL 15 ML BOTTLE EACHEYE PRN (21:00)
[2024-12-29] MEDS: TIMOLOL MAL/DORZOLAM HCL OPHTH 10 ML BOTTLE EACHEYE SCH (21:32)
[2024-12-29] MEDS: ATORVASTATIN 40 MG TABLET PO SCH (21:33)
[2024-12-29] MEDS: BACLOFEN (10 MG) 10 MG TABLET PO SCH (21:33)
[2024-12-29] MEDS: CARBIDOPA/LEVODOPA 25/100 MG 1 UDTAB PO SCH (21:33)
[2024-12-29] MEDS: GABAPENTIN 100 MG CAPSULE PO SCH (21:33)
[2024-12-30 07:00] VITALS: BP 132/62; TEMP 98.1; O2SAT 96
[2024-12-30 07:08] LABS: APPEARANCE,URINE CLOUDY (CLEAR); BLOOD, URINE 1+ Ery/uL (NEGATIVE); LEUKOCYTE ESTERASE ,URINE 3+ (NEGATIVE); NITRITE, URINE POSITIVE (NEGATIVE); UGLUCOSE NEGATIVE (NEGATIVE)
[2024-12-30 07:10] LABS: ADD URINE CULTURE YES; SQUAMOUS EPITHELIAL CELL,UR Rare /HPF (None Seen)
[2024-12-30 07:41] LABS: PLATELET COUNT (AUTO) 125 K/uL (150-450); RED BLOOD CELL COUNT(AUTO) 3.98 MIL/uL (4.0-5.2); RED CELL DISTRIBUTION WIDTH 15.1 % (11.5-15.0); WHITE BLOOD COUNT (AUTO) 5.9 K/uL (4.3-11.0)
[2024-12-30 08:14] LABS: CALCIUM, SERUM 8.3 mg/dL (8.5-10.1); CREATININE 1.0 mg/dL (0.6-1.3); PHOSPHORUS 3.2 mg/dL (2.5-4.9); SODIUM SERUM 141.0 mmol/L (136-145); UREA NITROGEN, BLOOD 22.0 mg/dL (7-18)
[2024-12-30] MEDS: DOCUSATE SODIUM 100 MG CAPSULE PO SCH (08:46)
[2024-12-30] MEDS: CHOLECALCIFEROL 1,000 UNIT TABLET (VIT D3) PO SCH (08:50)
[2024-12-30] MEDS: FAMOTIDINE (20 MG) 20 MG TABLET PO SCH (08:50)
[2024-12-30] MEDS: DICLOFENAC 0.1% OPTH DROPS 5 ML BOTTLE EACHEYE SCH (08:50)
[2024-12-30] MEDS: SERTRALINE HCL 50 MG TABLET PO SCH (08:51)
[2024-12-30] MEDS: MULTIVIT W/MINERALS 1 TAB TABLET PO SCH (08:51)
[2024-12-30] MEDS: ASPIRIN 81 MG TAB.CHEW PO SCH (08:51)
[2024-12-30] MEDS: CLOPIDOGREL BISULFATE 75 MG TABLET PO SCH (08:51)
[2024-12-30 15:00] VITALS: BP 122/65; TEMP 97.3; O2SAT 96
[2024-12-30] MEDS ORDERED: IOHEXOL-350 100 ML VIAL IV ONE (15:54)
[2024-12-30] MEDS ORDERED: IV NS 0.9% 250 ML IV ONE (15:55)
[2024-12-30 21:03] VITALS: BP 127/77; TEMP 98.1; O2SAT 96
[2024-12-30] MEDS: LATANOPROST EYE DROP 0.005% 2.5 ML BOTTLE EACHEYE SCH (21:48)
[2024-12-31 08:00] VITALS: BP 151/73; TEMP 98.5; O2SAT 97
[2024-12-31 08:36] VITALS: BP 151/73; TEMP 98.5; O2SAT 97
[2024-12-31 16:00] VITALS: BP 139/82; TEMP 97.5; O2SAT 96
[2024-12-31 16:19] VITALS: BP 139/82; TEMP 98.1; O2SAT 96
[2024-12-31 20:00] VITALS: BP 151/81; TEMP 98.6; O2SAT 95
[2024-12-31 22:22] VITALS: BP_SYST 151; TEMP 98.6; O2SAT 95
[2025-01-01 08:00] VITALS: BP 140/73; TEMP 98.2; O2SAT 97
[2025-01-01] MEDS: METOPROLOL TARTRATE 25 MG TABLET PO SCH (10:47)
[2025-01-01] MEDS ORDERED: METO25TA20 PO (14:16)
[2025-01-01] MEDS ORDERED: CEPH500C2 PO (14:16)
[2025-01-01] MEDS: CEFTRIAXONE 1 G in IV D5W 50 ML IV SCH (16:11)
[2025-01-01 16:16] VITALS: BP 135/62; TEMP 98.3; O2SAT 98
[2025-01-01 16:20] LABS: PLATELET COUNT (AUTO) 121 K/uL (150-450); RED BLOOD CELL COUNT(AUTO) 3.81 MIL/uL (4.0-5.2); RED CELL DISTRIBUTION WIDTH 14.9 % (11.5-15.0); WHITE BLOOD COUNT (AUTO) 5.6 K/uL (4.3-11.0)
[2025-01-01 16:31] LABS: CALCIUM, SERUM 8.3 mg/dL (8.5-10.1); CREATININE 1.2 mg/dL (0.6-1.3); SODIUM SERUM 141.0 mmol/L (136-145); UREA NITROGEN, BLOOD 17.0 mg/dL (7-18)
[2025-01-01] MEDS: ACETAMINOPHEN 325 MG TABLET PO PRN (16:47)
== END 2025-01-01 19:22 | DRG 389 ==
LOC: ER 14:27 → MED 16:34
PROVIDERS: ADMIT Nurse Practitioner Acute Care; ATTEND Nurse Practitioner Acute Care
DX: K56.41 Fecal impaction (principal); F02.84 Dementia in other diseases classified elsewhere, unspecified severity, with anxiety; N13.30 Unspecified hydronephrosis; N39.0 Urinary tract infection, site not specified; I71.43 Infrarenal abdominal aortic aneurysm, without rupture; G20.A1 Parkinson's disease without dyskinesia, without mention of fluctuations; I25.10 Atherosclerotic heart disease of native coronary artery without angina pectoris; E78.5 Hyperlipidemia, unspecified; Z88.5 Allergy status to narcotic agent; Z88.1 Allergy status to other antibiotic agents; Z79.82 Long term (current) use of aspirin; Z79.02 Long term (current) use of antithrombotics/antiplatelets; Z79.899 Other long term (current) drug therapy; Z82.49 Family history of ischemic heart disease and other diseases of the circulatory system; K57.30 Diverticulosis of large intestine without perforation or abscess without bleeding; K21.9 Gastro-esophageal reflux disease without esophagitis; R54 Age-related physical debility; Z66 Do not resuscitate; I11.0 Hypertensive heart disease with heart failure; I50.9 Heart failure, unspecified
CPT/HCPCS: 36415; 71045-TC; 80048-TC; 80076-TC; 81001; 83690-TC; 83735-TC; 84100-TC; 85025-TC; 87086-TC; 87186-TC; 92526; 92611; 93307-TC; A4223; G0378; J0696; J1650; J7030; J7050; J7060; Q9967

== ENCOUNTER 2025-01-22 23:10 | Inpatient (IN) | payer MEDICARE, MEDICAID ==
[~2025-01-22] VITALS: Ht 160 cm; Wt 67.6 kg
[~2025-01-22 23:10] MED LIST changes: +CEPH500C2 PO; +METO25TA20 PO
[2025-01-23] MEDS: VANCOMYCIN 1 GM in IV D5W 250 ML IV ONE
[2025-01-23 00:20] LABS: PLATELET COUNT (AUTO) 110 K/uL (150-450); RED BLOOD CELL COUNT(AUTO) 3.83 MIL/uL (4.0-5.2); RED CELL DISTRIBUTION WIDTH 14.7 % (11.5-15.0); WHITE BLOOD COUNT (AUTO) 14.8 K/uL (4.3-11.0)
[2025-01-23 00:29] LABS: CALCIUM, SERUM 8.7 mg/dL (8.5-10.1); CREATININE 2.2 mg/dL (0.6-1.3); SODIUM SERUM 138 mmol/L (136-145); UREA NITROGEN, BLOOD 46 mg/dL (7-18)
[2025-01-23 00:33] LABS: ASPARTATE AMINOTRANSFERASE 30 U/L (15-37); TOTAL PROTEIN, SERUM 7.9 g/dL (6.4-8.2)
[2025-01-23 00:36] LABS: LACTIC ACID 2.4 mmol/L (0.4-2.0)
[2025-01-23 00:39] LABS: INR 1.04 (0.91-1.10)
[2025-01-23] MEDS ORDERED: VANCOMYCIN 1 GM /D5W 250 ML PB IV ONE (00:43)
[2025-01-23] MEDS ORDERED: ONDANSETRON HCL/PF 4 MG/2 ML VIAL ONE (00:43)
[2025-01-23] MEDS ORDERED: CEFEPIME 1 GM VIAL ONE (00:43)
[2025-01-23] MEDS ORDERED: ACETAMINOPHEN 325 MG TABLET ONE (00:44)
[2025-01-23] MEDS: CEFEPIME 1 GM in IV D5W 50 ML IV ONE (00:48)
[2025-01-23] MEDS: IV NS 0.9% 1,000 ML BAG IV ONE ×2 (00:48→00:56)
[2025-01-23] MEDS: ACETAMINOPHEN 650 MG/20.3 ML UDC PO ONE (00:49)
[2025-01-23] MEDS: ONDANSETRON HCL/PF - ER 4 MG/2 ML VIAL IV ONE (00:49)
[2025-01-23] MEDS ORDERED: MAGNESIUM HYDROXIDE 30 ML UDC PO PRN (04:30)
[2025-01-23] MEDS ORDERED: MAG HYDROX/AL HYDROX/SIMETH 30 ML UDC PO PRN (04:30)
[2025-01-23] MEDS ORDERED: DOSING PER PHARMACY-CEFEPIME IVPB XX PRN (04:30)
[2025-01-23] MEDS ORDERED: DOSING PER PHARMACY-VANCOMYCIN IV XX PRN (04:30)
[2025-01-23] MEDS ORDERED: ONDANSETRON HCL/PF 4 MG/2 ML VIAL IVP PRN (04:30)
[2025-01-23 06:30] LABS: PLATELET COUNT (AUTO) 83 K/uL (150-450); RED BLOOD CELL COUNT(AUTO) 3.27 MIL/uL (4.0-5.2); RED CELL DISTRIBUTION WIDTH 15.1 % (11.5-15.0); WHITE BLOOD COUNT (AUTO) 10.4 K/uL (4.3-11.0)
[2025-01-23 06:41] LABS: APPEARANCE,URINE SLIGHTLY CLOUDY (CLEAR); BLOOD, URINE 2+ Ery/uL (NEGATIVE); LEUKOCYTE ESTERASE ,URINE 2+ (NEGATIVE); NITRITE, URINE POSITIVE (NEGATIVE); UGLUCOSE NEGATIVE (NEGATIVE)
[2025-01-23 06:52] LABS: ASPARTATE AMINOTRANSFERASE 27.0 U/L (15-37); CALCIUM, SERUM 7.2 mg/dL (8.5-10.1); CREATININE 1.8 mg/dL (0.6-1.3); PHOSPHORUS 3.1 mg/dL (2.5-4.9); SODIUM SERUM 138.0 mmol/L (136-145); TOTAL PROTEIN, SERUM 6.7 g/dL (6.4-8.2); UREA NITROGEN, BLOOD 40.0 mg/dL (7-18)
[2025-01-23 07:18] LABS: ADD URINE CULTURE YES; SQUAMOUS EPITHELIAL CELL,UR 0-2 /HPF (None Seen)
[2025-01-23] MEDS: VANCOMYCIN 500 MG in IV D5W 100ml IV ONE (08:18)
[2025-01-23] MEDS ORDERED: OMEG1CAP40 PO (08:32)
[2025-01-23] MEDS ORDERED: POLY15DR17 EACHEYE (08:32)
[2025-01-23] MEDS ORDERED: CALC-1276 PO (08:32)
[2025-01-23 10:00] VITALS: BP 103/60; TEMP 99.6; O2SAT 96
[2025-01-23 12:00] VITALS: BP 103/60; TEMP 99.6; O2SAT 96
[2025-01-23] MEDS: PANTOPRAZOLE 40 MG VIAL IV SCH (12:41)
[2025-01-23] MEDS: ENOXAPARIN SODIUM 30 MG/0.3 ML DISP.SYRIN SQ SCH (12:43)
[2025-01-23] MEDS: CEFEPIME 1 GM in IV D5W 50 ML IV SCH (12:47)
[2025-01-23 13:01] LABS: LYMPHOCYTES % (MANUAL) 3 % (16-48); MONOCYTES % (MANUAL) 3 % (0-11.0); NEUTROPHILS % (MANUAL) 94 (42-76)
[2025-01-23 13:02] LABS: PLATELET ESTIMATE DECREASED
[2025-01-23 16:00] VITALS: BP 118/60; TEMP 98.9; O2SAT 96
[2025-01-23 20:00] VITALS: BP 103/55; TEMP 98.8; O2SAT 95
[2025-01-23] MEDS: IV NS 0.9% 1,000 ML IV PRN (20:00)
[2025-01-24] VITALS: BP 91/74; TEMP 99.2; O2SAT 96
[2025-01-24 04:00] VITALS: BP 133/76; TEMP 99.3; O2SAT 95
[2025-01-24 06:04] LABS: PLATELET COUNT (AUTO) 75 K/uL (150-450); RED BLOOD CELL COUNT(AUTO) 3.10 MIL/uL (4.0-5.2); RED CELL DISTRIBUTION WIDTH 14.7 % (11.5-15.0); WHITE BLOOD COUNT (AUTO) 4.6 K/uL (4.3-11.0)
[2025-01-24 06:22] LABS: CALCIUM, SERUM 7.7 mg/dL (8.5-10.1); CREATININE 1.7 mg/dL (0.6-1.3); PHOSPHORUS 2.4 mg/dL (2.5-4.9); SODIUM SERUM 142.0 mmol/L (136-145); UREA NITROGEN, BLOOD 37.0 mg/dL (7-18)
[2025-01-24 08:00] VITALS: BP 100/67; TEMP 98.2; O2SAT 96
[2025-01-24] MEDS: ACETAMINOPHEN 325 MG TABLET PO PRN (09:19)
[2025-01-24 12:00] VITALS: BP 115/64; TEMP 98.4; O2SAT 95
[2025-01-24 12:22] LABS: EOSINOPHILS % (MANUAL) 1 % (0-4); LYMPHOCYTES % (MANUAL) 6 % (16-48); MONOCYTES % (MANUAL) 5 % (0-11.0); NEUTROPHILS % (MANUAL) 88 (42-76); PLATELET ESTIMATE DECREASED
[2025-01-24] MEDS: VANCOMYCIN 750 MG in IV D5W 250 ML IV SCH (15:16)
[2025-01-24 16:00] VITALS: BP 123/71; TEMP 97.9; O2SAT 96
[2025-01-24] MEDS: K PHOS NEUTRAL 250 MG TABLET PO ONE (16:25)
[2025-01-24 20:00] VITALS: BP 139/72; TEMP 98.3; O2SAT 95
[2025-01-24] MEDS ORDERED: VANCOMYCIN 1 GM in IV D5W 250ml IV SCH (20:00)
[2025-01-25] VITALS: BP 122/68; TEMP 98.1; O2SAT 97
[2025-01-25 04:00] VITALS: BP 140/99; TEMP 98; O2SAT 97
[2025-01-25 06:25] LABS: CALCIUM, SERUM 7.9 mg/dL (8.5-10.1); CREATININE 1.3 mg/dL (0.6-1.3); SODIUM SERUM 141.0 mmol/L (136-145); UREA NITROGEN, BLOOD 29.0 mg/dL (7-18)
[2025-01-25 08:00] VITALS: BP 137/65; TEMP 97.5; O2SAT 97
[2025-01-25] MEDS: PANTOPRAZOLE 40 MG TABLET.DR PO SCH (09:01)
[2025-01-25 12:00] VITALS: BP 133/68; TEMP 98.8; O2SAT 97
[2025-01-25 16:00] VITALS: BP 148/78; TEMP 98.3; O2SAT 97
[2025-01-25 20:00] VITALS: BP 146/88; TEMP 98.6; O2SAT 98
[2025-01-26] VITALS: BP 138/73; TEMP 98.2; O2SAT 97
[2025-01-26 06:00] VITALS: BP 135/75; TEMP 98.2; O2SAT 97
[2025-01-26 07:52] LABS: PLATELET COUNT (AUTO) 89 K/uL (150-450); RED BLOOD CELL COUNT(AUTO) 3.29 MIL/uL (4.0-5.2); RED CELL DISTRIBUTION WIDTH 14.3 % (11.5-15.0); WHITE BLOOD COUNT (AUTO) 4.9 K/uL (4.3-11.0)
[2025-01-26 08:00] VITALS: BP 141/77; TEMP 97.9; O2SAT 96
[2025-01-26 08:01] LABS: CALCIUM, SERUM 8.4 mg/dL (8.5-10.1); CREATININE 1.4 mg/dL (0.6-1.3); PHOSPHORUS 2.3 mg/dL (2.5-4.9); SODIUM SERUM 146.0 mmol/L (136-145); UREA NITROGEN, BLOOD 23.0 mg/dL (7-18)
[2025-01-26] MEDS ORDERED: MEROPENEM 1 G in IV NS 0.9% 100 ML IV SCH (10:00)
[2025-01-26] MEDS: CARVEDILOL 3.125 MG TABLET PO SCH (10:53)
[2025-01-26] MEDS: LACTULOSE 10 G/15 ML UDC (PYXIS) PO SCH (10:53)
[2025-01-26] MEDS: DOCUSATE SODIUM LIQ 100 MG/10 ML UDC PO SCH (10:53)
[2025-01-26] MEDS: POLYETHYLENE GLYCOL 3350 17 GM POWD.PACK PO SCH (10:53)
[2025-01-26] MEDS: MEROPENEM 1 G in IV NS 0.9% 100 ML IV SCH (10:54)
[2025-01-26 12:00] VITALS: BP 143/87; TEMP 98.2; O2SAT 99
[2025-01-26 12:24] LABS: LYMPHOCYTES % (MANUAL) 10 % (16-48); MONOCYTES % (MANUAL) 6 % (0-11.0); NEUTROPHILS % (MANUAL) 84 (42-76); PLATELET ESTIMATE DECREASED
[2025-01-26] MEDS: IV 1/2NS 1000 ML 1,000 ML IV SCH (12:46)
[2025-01-26 16:00] VITALS: BP 156/85; TEMP 97.9; O2SAT 97
[2025-01-26] MEDS: K PHOS NEUTRAL 250 MG TABLET PO ONE (17:51)
[2025-01-26 20:00] VITALS: BP 160/82; TEMP 98.4; O2SAT 96
[2025-01-27] VITALS: BP 147/84; TEMP 98.6; O2SAT 98
[2025-01-27 04:00] VITALS: BP 134/90; TEMP 98.5; O2SAT 100
[2025-01-27 07:55] LABS: CALCIUM, SERUM 8.5 mg/dL (8.5-10.1); CREATININE 1.2 mg/dL (0.6-1.3); SODIUM SERUM 144.0 mmol/L (136-145); UREA NITROGEN, BLOOD 21.0 mg/dL (7-18)
[2025-01-27 08:00] VITALS: BP 157/68; TEMP 99.2; O2SAT 100
[2025-01-27] MEDS: POTASSIUM CHLORIDE 20 MEQ TAB.PRT.SR PO SCH (12:06)
[2025-01-27 14:38] VITALS: BP 134/71; TEMP 99.2; O2SAT 100
[2025-01-27 16:00] VITALS: BP 145/70; TEMP 99.8; O2SAT 100
[2025-01-27] MEDS: IV 1/2NS 1000 ML 1,000 ML IV PRN (16:48)
[2025-01-27 20:00] VITALS: BP 146/70; TEMP 98.4; O2SAT 97
[2025-01-28] VITALS: BP 146/75; TEMP 97.5; O2SAT 98
[2025-01-28 04:00] VITALS: BP 154/90; TEMP 98.1; O2SAT 95
[2025-01-28 07:57] LABS: CALCIUM, SERUM 8.3 mg/dL (8.5-10.1); CREATININE 1.2 mg/dL (0.6-1.3); SODIUM SERUM 144.0 mmol/L (136-145); UREA NITROGEN, BLOOD 18.0 mg/dL (7-18)
[2025-01-28 08:00] VITALS: BP 134/88; TEMP 97.6; O2SAT 95
[2025-01-28 09:17] LABS: PLATELET COUNT (AUTO) 127 K/uL (150-450); RED BLOOD CELL COUNT(AUTO) 3.24 MIL/uL (4.0-5.2); RED CELL DISTRIBUTION WIDTH 14.6 % (11.5-15.0); WHITE BLOOD COUNT (AUTO) 7.0 K/uL (4.3-11.0)
[2025-01-28 12:00] VITALS: BP 145/82; TEMP 97.9; O2SAT 95
[2025-01-28 16:00] VITALS: BP 157/93; TEMP 98.9; O2SAT 95
[2025-01-28 20:00] VITALS: BP 151/95; TEMP 98.6; O2SAT 94
[2025-01-29] VITALS: BP 124/96; TEMP 99.3; O2SAT 97
[2025-01-29 04:00] VITALS: BP 159/97; TEMP 99.5; O2SAT 97
[2025-01-29 08:00] VITALS: BP 141/85; TEMP 99.4; O2SAT 97
[2025-01-29 08:22] LABS: CALCIUM, SERUM 8.6 mg/dL (8.5-10.1); CREATININE 1.2 mg/dL (0.6-1.3); SODIUM SERUM 141.0 mmol/L (136-145); UREA NITROGEN, BLOOD 15.0 mg/dL (7-18)
[2025-01-29] MEDS ORDERED: MERO1VIA23 IV (09:55)
[2025-01-29 12:00] VITALS: BP 152/89; TEMP 99.4; O2SAT 99
[2025-01-29] MEDS: GABAPENTIN 100 MG CAPSULE PO SCH (12:42)
[2025-01-29] MEDS: CARBIDOPA/LEVODOPA 25/100 MG 1 UDTAB PO SCH (12:42)
[2025-01-29] MEDS: BACLOFEN (10 MG) 10 MG TABLET PO SCH (12:42)
[2025-01-29] MEDS ORDERED: METOPROLOL TARTRATE 25 MG TABLET PO SCH (21:00)
[2025-01-29] MEDS ORDERED: ATORVASTATIN 40 MG TABLET PO SCH (22:00)
[2025-01-30] MEDS ORDERED: FAMOTIDINE (20 MG) 20 MG TABLET PO SCH (07:30)
[2025-01-30] MEDS ORDERED: CLOPIDOGREL BISULFATE 75 MG TABLET PO SCH (09:00)
[2025-01-30] MEDS ORDERED: TIMOLOL MAL/DORZOLAM HCL OPHTH 10 ML BOTTLE EACHEYE SCH (09:00)
[2025-01-30] MEDS ORDERED: ASPIRIN 81 MG TAB.CHEW PO SCH (09:00)
[2025-01-30] MEDS ORDERED: SERTRALINE HCL 50 MG TABLET PO SCH (09:00)
== END 2025-01-29 15:15 | DRG 872 ==
LOC: ER 23:12 → TELE IN 01-23 03:06 → TELE1 01-23 08:21
PROVIDERS: ATTEND Internal Medicine
DX: A41.9 Sepsis, unspecified organism (principal); G93.49 Other encephalopathy; E87.0 Hyperosmolality and hypernatremia; Z66 Do not resuscitate; N17.9 Acute kidney failure, unspecified; N39.0 Urinary tract infection, site not specified; D69.6 Thrombocytopenia, unspecified; R65.20 Severe sepsis without septic shock; Z79.02 Long term (current) use of antithrombotics/antiplatelets; B96.20 Unspecified Escherichia coli [E. coli] as the cause of diseases classified elsewhere; F02.84 Dementia in other diseases classified elsewhere, unspecified severity, with anxiety; I50.9 Heart failure, unspecified; G20.A1 Parkinson's disease without dyskinesia, without mention of fluctuations; I11.0 Hypertensive heart disease with heart failure; I71.40 Abdominal aortic aneurysm, without rupture, unspecified; D64.9 Anemia, unspecified; Z16.12 Extended spectrum beta lactamase (ESBL) resistance; K59.00 Constipation, unspecified; K21.9 Gastro-esophageal reflux disease without esophagitis; K52.89 Other specified noninfective gastroenteritis and colitis; E78.5 Hyperlipidemia, unspecified; Z88.1 Allergy status to other antibiotic agents; Z88.5 Allergy status to narcotic agent; Z82.49 Family history of ischemic heart disease and other diseases of the circulatory system; Z79.899 Other long term (current) drug therapy; Z79.82 Long term (current) use of aspirin; I25.10 Atherosclerotic heart disease of native coronary artery without angina pectoris; K57.30 Diverticulosis of large intestine without perforation or abscess without bleeding
CPT/HCPCS: 36415; 70450-TC; 71045-TC; 80048-TC; 80076-TC; 80202-TC; 81001; 83605-TC; 83735-TC; 84100-TC; 84443-TC; 85025-TC; 85027-TC; 85730-TC; 87040-TC; 87081-TC; 87086-TC; 87186-TC; A4223; A6213; G0378; J0692; J1650; J2185; J2405; J2470; J3373; J3374; J3490; J7030; J7050; J7060